=== PATIENT | female | born 1970 | race Caucasian/White ===

== ENCOUNTER 2018-03-04 11:52 | Inpatient (IN) | payer OTHER ==
[2018-03-04] VITALS (8 sets, daily range): BP systolic 114–138; BP diastolic 67–83; PULSE 71–88; TEMP 36.8–36.9; O2SAT 94–98; BMI 35.4
[~2018-03-04] VITALS: Ht 157.5 cm; Wt 87.8 kg
[~2018-03-04 11:52] MED LIST: CLC/300 PO; DICL1GEL12 TOP; DOXY100C76 PO; DULO60CA44 PO; GLIM4TAB PO; GLUCTAB6 PO; METF1000 PO; MULT-506 PO; NAPR250T3 PO; OXYC-90 PO
[2018-03-04] MEDS ORDERED: LACTATED RINGER'S 1000ML 1,000 ML IV SCH (13:08)
[2018-03-04] MEDS ORDERED: MoRPHine SULFATE 4 MG/ML 1 ML CARP\\VIAL IV PRN (13:15)
[2018-03-04] MEDS ORDERED: PIPERACILL/TAZOBAC CONSULT ACTIVE PRN (13:15)
[2018-03-04] MEDS ORDERED: MoRPHine SULFATE 2 MG/ML CARP IV PRN (13:15)
--- NOTE | 2018-03-04 13:26 | Medical Consult ---
Consultation Date of Consultation: Mar 04, 2018. Attending Physician: Reason for Consultation: Right Axilla Abscess History of Present Illness Ms. Mullins is a 47-year-old female with past medical history significant for Diabetes presented today to [facility] ED for incision check- patient is 2 days s/p Incision and Drainage of Right Axilla. Patient was started on outpatient Clindamycin- culture reveals sensitivity to Clindamycin. Patient states that the incision has been draining since Tuesday. She reports improvement in pain. Denies fever or chills at home. Past Medical/Surgical History Medical Problems: (1) Abscess Status: Acute Social History Smoking Status: Never Smoker Allergies Coded Allergies: Adhesives (Unverified Allergy, Unknown, RASH , 03/04/18) Bacitracin (Unverified Allergy, Unknown, RASH, 03/04/18) REACTION TO ALL ANTIBIOTIC CREAMS Latex1 -Allergic Contact Dermititis (Unverified Allergy, Unknown, RASH , ) REACTION TO GLOVES WITH POWDER Neomycin (Unverified Allergy, Unknown, RASH, 03/04/18) REACTION TO ALL ANTIBIOTIC CREAMS Nickel (Unverified Allergy, Unknown, RASH, 03/04/18) Polymyxin B (Unverified Allergy, Unknown, RASH, 03/04/18) REACTION TO ALL ANTIBIOTIC CREAMS Sulfate (Unverified Allergy, Unknown, RASH , 03/04/18) SULFATE IN SHAMPOO Review of Systems Constitutional: No fever, No chills Integumentary: + problem reported (area of erythema marked with first I & D- redness improving. Patient has incision- drainage appreciated on physical examination. ) Physical Exam Date Time Temp Pulse Resp B/P (MAP) Pulse Ox O2 Delivery O2 Flow Rate FiO2 03/04/18 12:55 74 20 127/67 97 Room Air 03/04/18 11:55 36.7 80 18 120/66 97 Room Air General Appearance: WD/WN, no apparent distress Skin: + pertinent finding (area of erythema marked with first I & D-redness improving. Patient has incision- drainage appreciated on physical examination. Tender with palpation. ) Assessment & Plan 47-year-old female 2 days s/p I and D of right axilla abscess. Patient seen and examined with Dr. Acosta. Recommend further Incision and Drainage with debridement in OR today. Patient states that last meal was a pretzel at 11AM today. Anesthesia notified- will need to wait 8hrs until surgery. Will admit to Med/Surg floor IV abx- Zosyn IV pain med Patient NPO. Hospitalist consult for assistance with medical management.
[2018-03-04] MEDS ORDERED: ONDANSETRON INJ 2 MG/ML 2 ML VIAL IV PRN ×3 (13:30→20:15)
[2018-03-04] MEDS ORDERED: PIPERACILL/TAZOBAC IV 3.375 GM in DEXTROSE 5% 100ML 100 ML IV SCH (13:45)
[2018-03-04 14:13] LABS: BASO % 0.3 %; BASO ABS # 0.02 K/uL (0-0.2); EOS ABS # 0.14 K/uL (0-0.5); HEMATOCRIT 37.8 % (37-47); HEMOGLOBIN 12.2 g/dL (12.0-16.0); IG# 0.05 K/uL (0.00-0.02); LYMPH % 29.9 %; LYMPH ABS # 2.05 K/uL (1.2-3.4); MEAN CELL VOLUME 90.6 fL (80-100); MEAN CORPUSCULAR HEMOGLOBIN 29.3 pg (25-34); MEAN CORPUSCULAR HGB CONC 32.3 g/dl (32-36); MEAN PLATELET VOLUME 9.1 fL (7.4-10.4); MONO % 7.3 %; NEUT % 59.8 %; PLATELET COUNT 389 K/uL (130-400); RED CELL DISTRIBUTION WIDTH CV 14.3 % (11.5-14.5); WHITE BLOOD COUNT 6.86 K/uL (4.8-10.8)
[2018-03-04 14:29] LABS: CALCIUM 9.5 mg/dl (8.5-10.1); CREATININE 0.61 mg/dl (0.60-1.20); POTASSIUM 3.9 mmol/L (3.5-5.1)
[2018-03-04] MEDS ORDERED: GLUCOSE 10 TABS/TUBE PO PRN (15:15)
[2018-03-04] MEDS ORDERED: DEXTROSE 50% 50 ML SYR IV PRN (15:15)
[2018-03-04] MEDS ORDERED: NURSING DECISION MEDICATION ORDER SCH ×2 (15:15→21:15)
[2018-03-04] MEDS ORDERED: CARBOHYDRATES FOR HYPOGLYCEMIA PO PRN (15:15)
[2018-03-04] MEDS ORDERED: GLUCOSE 40% GEL 15 GM TUBE PO PRN (15:15)
[2018-03-04] MEDS ORDERED: GLUCAGON FOR INJ 1 MG VIAL SQ PRN (15:15)
--- NOTE | 2018-03-04 16:21 | Medical Consult ---
Consultation Date of Consultation: Mar 04, 2018. Attending Physician: Raffy Acosta M.D. Reason for Consultation: Medical Management History of Present Illness This is a 47 year old female with a past medical history of DM2, diabetic nephropathy - presents with abscess on the R axilla. She states she's had this for a few weeks - she received IM Rocephin and doxycycline initially; on subsequent visits received more IM Rocephin. She was seen by [facility] ER staff on 03/02 for an I&D. Was discharged with Clindamycin. She states that the R axillary abscess did not improve, pain worsened. Presented here for possible I&D in the OR. Past Medical/Surgical History Medical Problems: (1) Abscess Status: Acute Social History Smoking Status: Never Smoker Allergies Coded Allergies: Adhesives (Unverified Allergy, Unknown, RASH , 03/04/18) Bacitracin (Unverified Allergy, Unknown, RASH, 03/04/18) REACTION TO ALL ANTIBIOTIC CREAMS Latex1 -Allergic Contact Dermititis (Unverified Allergy, Unknown, RASH , ) REACTION TO GLOVES WITH POWDER Neomycin (Unverified Allergy, Unknown, RASH, 03/04/18) REACTION TO ALL ANTIBIOTIC CREAMS Nickel (Unverified Allergy, Unknown, RASH, 03/04/18) Polymyxin B (Unverified Allergy, Unknown, RASH, 03/04/18) REACTION TO ALL ANTIBIOTIC CREAMS Sulfate (Unverified Allergy, Unknown, RASH , 03/04/18) SULFATE IN SHAMPOO Current Inpatient Medications Current Inpatient Medications Medications (Trade) Dose Ordered Sig/Jany Route Start Time Stop Time Status Last Admin Dose Admin Piperacillin Sod/ Tazobactam Sod 3.375 gm/Dextrose 115 ml @ 28.75 mls/ hr Q8 IV 03/04/18 14:00 03/18/18 13:59 UNV Miscellaneous Information (Consult) 1 ea UD PRN N/A 03/04/18 13:15 04/03/18 13:14 Lactated Ringer's 1,000 ml @ 100 mls/hr Q10H IV 03/04/18 13:08 04/03/18 13:07 UNV Morphine Sulfate (MoRPHine SULFATE INJ) 1 mg Q1H PRN IV 03/04/18 13:15 03/18/18 13:14 Morphine Sulfate (MoRPHine SULFATE INJ) 2 mg Q1H PRN IV 03/04/18 13:15 03/18/18 13:14 Morphine Sulfate (MoRPHine SULFATE INJ) 3 mg Q1H PRN IV 03/04/18 13:15 03/18/18 13:14 Ondansetron HCl (Zofran Inj) 4 mg Q4H PRN IV 03/04/18 13:30 04/03/18 13:29 Review of Systems Constitutional: No fever, No chills Respiratory: No cough, No sputum, No shortness of breath, No dyspnea on exertion, No dyspnea at rest, No hemoptysis Cardiovascular: No chest pain, No edema, No palpitations Abdomen: No pain, No nausea, No vomiting, No diarrhea, No constipation, No GI bleeding Musculoskeletal: + muscle pain (R axillary pain), No joint pain Genitourinary - Female: No dysuria, No urinary frequency, No urinary urgency, No urinary incontinence, No urinary retention, No hematuria Neurologic: No memory loss Psychiatric: No depression symptoms, No anxiety, No insomnia Endocrine: No fatigue Hematologic / Lymphatic: No abnormal bleeding/bruising Integumentary: No rash Allergic / Immunologic: No environmental allergies, No seasonal allergies Physical Exam Date Time Temp Pulse Resp B/P (MAP) Pulse Ox O2 Delivery O2 Flow Rate FiO2 03/04/18 14:57 36.9 86 18 129/73 (91) 95 Room Air 03/04/18 14:37 Room Air 03/04/18 14:10 84 20 130/56 93 03/04/18 13:45 97 Room Air 03/04/18 12:55 74 20 127/67 97 Room Air 03/04/18 11:55 36.7 80 18 120/66 97 Room Air General Appearance: no apparent distress Head: normocephalic, atraumatic Eyes: normal inspection ENT: hearing grossly normal Respiratory/Chest: lungs clear, normal breath sounds, no respiratory distress, no accessory muscle use Cardiovascular: regular rate, rhythm, no edema, no murmur, normal peripheral pulses Abdomen/GI: normal bowel sounds, non tender, soft Extremities/Musculoskelatal: + pertinent finding (R axillary erythema, incision noted, purulunt, warm to touch) Neurologic/Psych: no motor/sensory deficits, alert, normal mood/affect Skin: normal color Lymphatic: no adenopathy Laboratory Results Last 24 Hours Test 03/04/18 13:50 White Blood Count 6.86 K/uL Red Blood Count 4.17 M/uL Hemoglobin 12.2 g/dL Hematocrit 37.8 % Mean Corpuscular Volume 90.6 fL Mean Corpuscular Hemoglobin 29.3 pg Mean Corpuscular Hemoglobin Concent 32.3 g/dl Platelet Count 389 K/uL Mean Platelet Volume 9.1 fL Neutrophils (%) (Auto) 59.8 % Lymphocytes (%) (Auto) 29.9 % Monocytes (%) (Auto) 7.3 % Eosinophils (%) (Auto) 2.0 % Basophils (%) (Auto) 0.3 % Neutrophils # (Auto) 4.10 K/uL Lymphocytes # (Auto) 2.05 K/uL Monocytes # (Auto) 0.50 K/uL Eosinophils # (Auto) 0.14 K/uL Basophils # (Auto) 0.02 K/uL RDW Standard Deviation 47.0 fL RDW Coefficient of Variation 14.3 % Immature Granulocyte % (Auto) 0.7 % Immature Granulocyte # (Auto) 0.05 K/uL Sodium Level 141 mmol/L Potassium Level 3.9 mmol/L Chloride Level 105 mmol/L Carbon Dioxide Level 25 mmol/L Anion Gap 11.0 mmol/L Blood Urea Nitrogen 16 mg/dl Creatinine 0.61 mg/dl Est Creatinine Clear Calc Drug Dose 117.3 ml/min Estimated GFR () 125.1 Estimated GFR (Non- 108.0 BUN/Creatinine Ratio 25.9 Random Glucose 101 mg/dl Calcium Level 9.5 mg/dl Assessment & Plan This is a 47 year old female with a past medical history of DM2, diabetic neuropathy - presents for R axillary abscess R Axillary Abscess - patient has had an I&D on 03/02 - abscess still purulent - appreciate surgery input; will need I&D - continue IV Zosyn for now, can likely use PO Clindamycin pending cultures DM2 - hold oral agents - insulin sliding scale - check Ha1c in AM DVT ppx - SCDs FULL CODE
--- NOTE | 2018-03-04 16:31 | EMERGENCY ROOM VISIT NOTE ---
History First contact with patient: 12:00 Chief Complaint: WOUND RECHECK Stated Complaint: ABSCESS OF RIGHT AXILLA Nursing Triage Summary: was seen here and had wound opened under right arm. wound is still draining "it looks better" denies fever History of Present Illness The patient is a 47 year old white female who presents to the Emergency Room with complaints of continued pain and drainage in her right axilla. She was seen here 2 days ago and had an I&D performed of an axillary abscess. Culture was obtained and it is sensitive to clindamycin. She is already on clindamycin. Pain continues. She states it is not as uncomfortable as her previous visit. No fevers or chills. She denies any drainage other than what is on the axillary pad. Her accompanies her today. Review of Systems REVIEW OF SYSTEM: HEENT: No dizziness, visual problems, hearing loss, or tinnitus. There is no difficulty swallowing and no oral lesions are present. LYMPH: No adenopathy. PULMONARY: No cough, shortness of breath, sputum production or hemoptysis. CARDIOVASCULAR: No chest pain, palpitations, shortness of breath or peripheral edema. GASTROINTESTINAL: No diarrhea, constipation, nausea, vomiting, or abdominal pain. GENITOURINARY: No dysuria, frequency, urgency or nocturia. NEUROLOGIC: No weakness, muscle tenderness, epilepsy or history of neurological problems. MUSCULOSKELETAL: No history of joint tenderness/swelling. No history of arthritis or arthralgias. SKIN: No rashes or lesions. ENDOCRINE: No history of thyroid disorders, or abnormal hair growth. Past Medical/Surgical History Medical Problems: (1) Abscess of right axilla Diabetes, depression Family History Unremarkable. Social History Smoking Status: Never Smoker Smokeless Tobacco Use: No Drug Use: none Marital Status: Housing Status: lives with family Occupation Status: unemployed Current/Historical Medications Scheduled Clindamycin HCl (Clindamycin HCl), 1 CAP PO QID Doxycycline Monohydrate (Monodox), 100 MG PO BID Duloxetine Hcl (Cymbalta), 60 MG PO DAILY Glimepiride (Amaryl), 4 MG PO QD Bpmogamcvfv-Zusizsgotex-Rce-Vi (Flexi Joint), 1 TAB PO BID Metformin Hcl (Glucophage), 1,000 MG PO BID Multivitamin (Multivitamin), 1 TAB PO DAILY Naproxen Tab (Naprosyn), 375 MG PO BID Scheduled PRN Oxycodone Ir (Roxicodone Ir), 1-2 TAB PO Q6 PRN for Pain Physical Exam Vital Signs Date Time Temp Pulse Resp B/P (MAP) Pulse Ox O2 Delivery O2 Flow Rate FiO2 03/04/18 12:55 74 20 127/67 97 Room Air 03/04/18 11:55 36.7 80 18 120/66 97 Room Air Physical Exam General: Well-developed, well-nourished, middle-aged white female, in obvious discomfort. No acute distress. Laying on a bed. Alert and oriented. Skin: Warm and dry with good turgor. No rashes. No ecchymosis. She has a large firm abscess present in the right axilla. There are 2 prior incisions that are leaking bloody purulent material. Packing is evident. Areas tender to touch. Redness around the abscess has decreased considerably from her line of demarcation. Considerable amount of discoloration and swelling remain. The patient is not diaphoretic. No abrasions. Musculoskeletal: Gross motor function of the shoulder, elbow, and wrist are all intact. Strength is 5/5 for resisted motion. Neurologic: Gross sensation is intact across the chest wall and arm by soft touch. Medical Decision & Procedures Laboratory Results Cultures from her previous visit show a susceptible bacteria. It does respond to clindamycin. No evidence of MRSA at this time. Medications Administered Medications (Trade) Dose Ordered Sig/Jany Route Start Time Stop Time Status Last Admin Dose Admin Lactated Ringer's 1,000 ml @ 100 mls/hr Q10H IV 03/04/18 13:08 04/03/18 13:07 03/04/18 15:51 100 MLS/HR Procedure Patient's packing was removed using forceps. Copious amounts of further purulent drainage were expressed. The indurated area is still quite large and firm. No additional packing was placed at this time. ED Course Patient was educated regarding today's findings. Conservative care measures were discussed. Packing was removed as stated. Additional purulent material was expressed. She is still draining. Due to the large size of the suspected abscess, and its location, I did speak with general surgery. Dr. Acosta and his PA [place] did come to the ED to evaluate the patient. Please see their dictation for final management. Patient will be admitted for surgical I&D later today. She remained stable while in the ED. No additional packing was placed. She did eat a pretzel roll with jelly just prior to coming to the ED. She also had some Sprite. She remained n.p.o. while in the ED. Medical Decision Possibility of indurated area, subcutaneous abscess, MRSA infection, and retained foreign body were all considered. [place] Drug Monitoring Program Search Results: no issues identified Medication Reconcilliation Current Medication List: was personally reviewed by me Blood Pressure Screening Patient's blood pressure: Normal blood pressure Impression Primary Impression: Abscess of right axilla Departure Information Dispostion Still a Patient Condition FAIR Referrals Marek Ward M.D. (PCP) Forms WORK / SCHOOL INSTRUCTIONS, HOME CARE DOCUMENTATION FORM, IMPORTANT VISIT INFORMATION Patient Instructions [facility]
[2018-03-04] MEDS ORDERED: INSULIN ASPART 100 UNITS/ML 3 ML PEN SC SCH ×2 (17:15→18:00)
[2018-03-04] MEDS ORDERED: LIDOCAINE HCL 2% 2 ML VIAL (20MG/ML) ONE ×2 (18:50)
[2018-03-04] MEDS ORDERED: PROPOFOL IV EMULSION 10 MG/ML 20 ML VIAL ONE (18:50)
[2018-03-04] MEDS ORDERED: FENTANYL CITRATE INJ 50 MCG/1 ML 2 ML VIAL ONE ×4 (19:03→20:56)
[2018-03-04] MEDS ORDERED: ONDANSETRON INJ 2 MG/ML 2 ML VIAL ONE (19:04)
[2018-03-04] MEDS ORDERED: MIDAZOLAM HCL 1 MG/ML 2ML VIAL ONE (19:04)
[2018-03-04] MEDS ORDERED: BUPIVACAINE 0.5 % 5 MG/1 ML PF 10ML VIAL ONE (19:28)
[2018-03-04] MEDS ORDERED: LABETALOL HCL IV 5 MG/ML 20ML IV PRN (20:00)
[2018-03-04] MEDS ORDERED: MEPERIDINE HCL 25 MG/ML CARP IV PRN (20:00)
[2018-03-04] MEDS ORDERED: ATROPINE SULFATE 0.1 MG/ML 5ML SYR IV PRN (20:00)
[2018-03-04] MEDS ORDERED: EpHEDrine SULFATE INJ 50 MG/ML AMP IV PRN (20:00)
[2018-03-04] MEDS ORDERED: HYDROmorphone INJ 1 MG/ML SYR IV PRN (20:00)
--- NOTE | 2018-03-04 20:08 | [facility] Operative Report ---
Operative Report Operative Date Mar 04, 2018. Pre-Operative Diagnosis Right axilla abscess Post-Operative Diagnosis Right axilla abscess Procedure(s) Performed Incision, drainage, and debridement of right axilla abscess Surgeon Dr. Raffy Acosta MD Field Education Coordinator Surgeon(s) Francis Herman PA-C Estimated Blood Loss 50ml Findings very large Rt axillary abscess with deep necrosis- multiple micro abscesses spreading into soft tissue extending over 14 cm med- lat, and 6-8 cm wide packed open Specimens Culture 1. Right axilla culture Drains char posterolateral Anesthesia Type General Complication(s) none Disposition Recovery Room / PACU I attest to the content of the Intraoperative Record and any orders documented therein. Any exceptions are noted below.
[2018-03-04] MEDS ORDERED: PROMETHAZINE HCL INJ 25 MG in SODIUM CHLORIDE 0.9% 50ML 50 ML IV PRN (20:15)
[2018-03-04] MEDS ORDERED: HYDROCODONE/ACETAMIN 5/325MG TAB PO PRN (20:15)
[2018-03-04] MEDS ORDERED: ACETAMINOPHEN IV 100 ML IV ONE (20:15)
[2018-03-04] MEDS: FENTANYL CITRATE INJ 50 MCG/1 ML 2 ML VIAL IV PRN ×2 (20:24→20:31)
--- NOTE | 2018-03-04 20:43 | Anesthesiology Progress Note ---
Anesthesia Post Op Note Date & Time Mar 04, 2018 at 20:43 Vital Signs Pain Intensity: 3 Vital Signs Past 12 Hours Date Time Temp Pulse Resp B/P (MAP) Pulse Ox O2 Delivery O2 Flow Rate FiO2 03/04/18 20:13 36.1 89 18 142/77 98 Nasal Cannula 3 03/04/18 15:30 Room Air 03/04/18 15:07 36.9 88 16 133/72 (92) 95 Room Air 03/04/18 14:57 36.9 86 18 129/73 (91) 95 Room Air 03/04/18 14:37 Room Air 03/04/18 14:10 84 20 130/56 93 03/04/18 13:45 97 Room Air 03/04/18 12:55 74 20 127/67 97 Room Air 03/04/18 11:55 36.7 80 18 120/66 97 Room Air Notes Mental Status: alert / awake / arousable, participated in evaluation Pt Amnestic to Procedure: Yes Nausea / Vomiting: adequately controlled Pain: adequately controlled Airway Patency, RR, SpO2: stable & adequate BP & HR: stable & adequate Hydration State: stable & adequate Anesthetic Complications: no major complications apparent
[2018-03-04] MEDS ORDERED: PROMETHAZINE HCL INJ 12.5 MG in SODIUM CHLORIDE 0.9% 50ML 50 ML IV PRN (20:45)
[2018-03-04 20:54] LABS: INR 0.9 (0.9-1.1)
[2018-03-04] MEDS: LACTATED RINGER'S 1000ML 1,000 ML IV SCH (21:23)
[2018-03-04] MEDS ORDERED: ACETAMINOPHEN IV 100 ML IV SCH (21:30)
[2018-03-04] MEDS: PIPERACILL/TAZOBAC IV 3.375 GM in DEXTROSE 5% 100ML 100 ML IV SCH (22:29)
--- NOTE | 2018-03-04 23:14 | OPERATIVE REPORT ---
DATE OF OPERATION: 03/04/2018 NAME OF OPERATION: Incision, drainage and debridement of right axillary abscess. PREOPERATIVE DIAGNOSIS: Right axillary abscess. POSTOPERATIVE DIAGNOSIS: Right axillary abscess. STAFF SURGEON: Dr. Raffy Acosta. MUSIC DEPARTMENT CHAIR: Francis Chris PA-C. ANESTHESIA: General. DESCRIPTION OF PROCEDURE: The patient was brought in to the operating room and placed on the operating table in supine position. Her right arm was extended onto an arm board exposing the right axilla. The patient had undergone incision and drainage 2 days prior in the ER of the abscess, which was on reinspection not draining adequately and very large posteriorly. The erythema traversed approximately 14 cm from medial to lateral and posterior to the axilla. It was very wide also approximately 6-8 cm and draining purulent fluid. Incision was made from medial to lateral approximately 12 cm encountering significant deep necrosis with microabscesses extending 6-8 cm wide. These were opened as well as possible. I did debride tissue and the abscess cavity did appear to extend posteriorly 2-3 additional centimeters. This area was opened and a Rutledge drain placed. This was secured using 3-0 nylon suture. It was very friable and inflamed and somewhat bloody; however, gradually we controlled the bleeding with electrocautery and packing. It was irrigated. It was cultured and then a saline wet packing placed. My feeling was to give the wound 2-3 days of care and then she may need additional opening and debridement prior to any wound VAC placement. The patient tolerated the procedure well. Estimated blood loss was approximately 50 mL. I attest to the content of the Intraoperative Record and any orders documented therein. Any exception s are noted below.
[2018-03-05] VITALS (7 sets, daily range): BP systolic 104–133; BP diastolic 63–75; PULSE 69–76; TEMP 36.6–39.5; O2SAT 93–95
--- NOTE | 2018-03-05 06:31 | Surgery Progress Note ---
Surgery Progress Note Date of Service Mar 05, 2018. Subjective minimal pain- dressing intact- expected drainage Objective Vital Signs: Date Time Temp Pulse Resp B/P (MAP) Pulse Ox O2 Delivery O2 Flow Rate FiO2 03/05/18 03:50 37.0 69 16 112/69 (83) 95 Room Air 03/05/18 00:20 36.6 72 18 118/72 (87) 93 Room Air 03/05/18 00:15 95 Room Air 3.0 03/04/18 23:15 36.9 74 18 114/67 (83) 94 Room Air 03/04/18 22:35 98 Room Air 03/04/18 22:16 75 16 124/70 (88) 98 03/04/18 21:45 36.9 71 16 131/77 (95) 95 Nasal Cannula 2.0 03/04/18 21:10 36.8 88 16 138/83 (101) 95 Nasal Cannula 3.0 03/04/18 21:10 95 Nasal Cannula 3.0 03/04/18 21:00 36.1 83 16 133/81 99 Nasal Cannula 3 03/04/18 20:50 82 16 143/73 99 Nasal Cannula 3 03/04/18 20:40 75 10 119/82 97 Nasal Cannula 3 03/04/18 20:30 69 16 133/80 99 Nasal Cannula 3 03/04/18 20:20 92 20 145/91 97 Nasal Cannula 3 03/04/18 20:13 36.1 89 18 142/77 98 Nasal Cannula 3 03/04/18 15:30 Room Air 03/04/18 15:07 36.9 88 16 133/72 (92) 95 Room Air 03/04/18 14:57 36.9 86 18 129/73 (91) 95 Room Air 03/04/18 14:37 Room Air 03/04/18 14:10 84 20 130/56 93 03/04/18 13:45 97 Room Air 03/04/18 12:55 74 20 127/67 97 Room Air 03/04/18 11:55 36.7 80 18 120/66 97 Room Air General Appearance: no apparent distress Respiratory/Chest: no respiratory distress Incision(s): intact, drainage (expected) Laboratory Results: Results Past 24 Hours Test 03/04/18 13:50 03/04/18 17:55 7/21/18 20:17 03/04/18 21:17 Range/Units White Blood Count 6.86 4.8-10.8 K/uL Red Blood Count 4.17 4.2-5.4 M/uL Hemoglobin 12.2 12.0-16.0 g/dL Hematocrit 37.8 37-47 % Mean Corpuscular Volume 90.6 80-100 fL Mean Corpuscular Hemoglobin 29.3 25-34 pg Mean Corpuscular Hemoglobin Concent 32.3 32-36 g/dl Platelet Count 389 130-400 K/uL Mean Platelet Volume 9.1 7.4-10.4 fL Neutrophils (%) (Auto) 59.8 % Lymphocytes (%) (Auto) 29.9 % Monocytes (%) (Auto) 7.3 % Eosinophils (%) (Auto) 2.0 % Basophils (%) (Auto) 0.3 % Neutrophils # (Auto) 4.10 1.4-6.5 K/uL Lymphocytes # (Auto) 2.05 1.2-3.4 K/uL Monocytes # (Auto) 0.50 0.11-0.59 K/uL Eosinophils # (Auto) 0.14 0-0.5 K/uL Basophils # (Auto) 0.02 0-0.2 K/uL RDW Standard Deviation 47.0 36.4-46.3 fL RDW Coefficient of Variation 14.3 11.5-14.5 % Immature Granulocyte % (Auto) 0.7 % Immature Granulocyte # (Auto) 0.05 0.00-0.02 K/uL Prothrombin Time 9.6 9.0-12.0 SECONDS Prothromb Time International Ratio 0.9 0.9-1.1 Activated Partial Thromboplast Time 27.0 21.0-31.0 SECONDS Partial Thromboplastin Ratio 1.0 Sodium Level 141 136-145 mmol/L Potassium Level 3.9 3.5-5.1 mmol/L Chloride Level 105 98-107 mmol/L Carbon Dioxide Level 25 21-32 mmol/L Anion Gap 11.0 3-11 mmol/L Blood Urea Nitrogen 16 7-18 mg/dl Creatinine 0.61 0.60-1.20 mg/dl Est Creatinine Clear Calc Drug Dose 117.3 ml/min Estimated GFR () 125.1 Estimated GFR (Non- 108.0 BUN/Creatinine Ratio 25.9 10-20 Random Glucose 101 70-99 mg/dl Calcium Level 9.5 8.5-10.1 mg/dl Bedside Glucose 91 90 78 70-90 mg/dl Test 03/05/18 04:44 Range/Units Microbiology Results 03/04/18 Gram Stain, Received Pending 03/04/18 Bacterial Culture, Received Pending Assessment & Plan 03/05/18- s/p Incision, drainage, debridement Large Rt axillary abscess will need 2-3 days of wound care and possible additional drainage/debridement cont IV atbx- ask ID to help w/ atbx and will need f/u at wound clinic
[2018-03-05] MEDS: PIPERACILL/TAZOBAC IV 3.375 GM in DEXTROSE 5% 100ML 100 ML IV SCH ×3 (06:37→21:02)
[2018-03-05] MEDS: HYDROCODONE/ACETAMIN 5/325MG TAB PO PRN ×3 (06:40→21:03)
[2018-03-05 07:21] LABS: HEMATOCRIT 33.9 % (37-47); HEMOGLOBIN 10.6 g/dL (12.0-16.0); MEAN CELL VOLUME 91.6 fL (80-100); MEAN CORPUSCULAR HEMOGLOBIN 28.6 pg (25-34); MEAN CORPUSCULAR HGB CONC 31.3 g/dl (32-36); MEAN PLATELET VOLUME 8.9 fL (7.4-10.4); PLATELET COUNT 336 K/uL (130-400); RED CELL DISTRIBUTION WIDTH CV 14.5 % (11.5-14.5); RED CELL DISTRIBUTION WIDTH SD 48.9 fL (36.4-46.3); WHITE BLOOD COUNT 7.33 K/uL (4.8-10.8)
[2018-03-05 07:48] LABS: CALCIUM 8.8 mg/dl (8.5-10.1); CREATININE 0.67 mg/dl (0.60-1.20); POTASSIUM 4.1 mmol/L (3.5-5.1)
[2018-03-05] MEDS: INSULIN ASPART 100 UNITS/ML 3 ML PEN SC SCH ×4 (09:06→21:00)
[2018-03-05] MEDS: MoRPHine SULFATE 2 MG/ML CARP IV PRN ×2 (09:07→14:01)
[2018-03-05] MEDS: HEPARIN SOD 5000 UNIT/0.5 ML CARP SQ SCH ×2 (09:07→21:08)
[2018-03-05] MEDS: LACTATED RINGER'S 1000ML 1,000 ML IV SCH (09:35)
[2018-03-05] MEDS ORDERED: VANCOMYCIN CONSULT ACTIVE PRN (15:30)
[2018-03-05] MEDS ORDERED: VANCOMYCIN IV 2,250 MG in SODIUM CHLORIDE 0.9% 500ML 500 ML IV ONE (15:45)
--- NOTE | 2018-03-05 15:58 | Pharmacy Progress Note ---
Pharmacy Abx Initial Consult Date of Service Mar 05, 2018. Pharmacy Dosing Scope Date of Consult: 03/05/18 Consultation requested by: Dr. Friedman Pharmacy is consulted to initiate Vancomycin IV dosing therapy, order appropriate labs and adjust drug dose/frequency. Subjective The patient is a 47 year old female admitted on Mar 04, 2018 at 13:13. Objective Height (Feet): 5 Height (Inches): 2.00 Weight (Kilograms): 87.800 (BMI 35.4) Vital Signs (Past 12Hrs) Vital Signs Past 12 Hours Date Time Temp Pulse Resp B/P (MAP) Pulse Ox O2 Delivery O2 Flow Rate FiO2 03/05/18 15:04 37.2 71 18 104/63 (77) 94 Room Air 03/05/18 11:10 36.9 69 16 125/75 (92) 94 Room Air 03/05/18 08:00 Room Air 03/05/18 07:14 39.5 69 16 133/73 (93) 94 Room Air Lab Results (24Hrs) Laboratory Tests (24 Hours) Test 03/05/18 06:59 White Blood Count 7.33 K/uL (4.8-10.8) Item Value Date Time Creatinine 0.67 mg/dl 03/05/18 0659 Est Creatinine Clear Calc Drug Dose 106.8 ml/min 03/05/18 0659 Micro Results Date/Time Source Procedure Growth Status 03/04/18 19:44 Abscess Axilla, Right Gram Stain - Final Resulted 03/04/18 19:44 Bacterial Culture - Preliminary Staphylococcus Aureus Resulted Risk Factors for Resistance * Antimicrobial use within the last 90 days Doxycycline/Rocephin/Clindamycin for axillary abscess Assessment & Plan Assessment 47 year old female with persistent right axillary abscess. Was in ER 03/02 for I & D of abscess. She was discharged on Clindamycin. Has 2 prior incisions leaking bloody purulent material. The area is tender to the touch. Surgery performed I/D on 03/04/18. Abscess was spreading into the soft tissue. Abscess extending 14 cm med-lat & 6-8 cm wide. Plan Vancomycin for treatment of right axillary abscess Vancomycin IV * Estimated Pkinetic parameters: Vd 0.6 L/kg; Tiago ~ 0.093 hr-1; T1/2 7.5 hrs; CrCl 106.8 * Loading dose: 2250 mg (~25.6 mg/kg) * Maintenance dose: 1250 mg IV (~14.2 mg/kg) every 8 hours * Goal trough level : 15 to 20 mcg/mL * Trough level ordered for 03/07/18 Piperacillin/tazobactam - patient had already been on this medication * 3.375 g bolus administered over 30 minutes, then 3.375 g IV extended infusion every 8 hours for CrCl greater than 20 mL/min Pharmacy will continue to follow and will adjust dose/frequency as necessary. Thank you.
--- NOTE | 2018-03-05 17:38 | Progress Note ---
Subjective Date of Service: Mar 05, 2018. Subjective Pt evaluation today including: conversation w/ patient, physical exam, lab review, review of studies, review of inpatient medication list Saw/examined the patient in room 377 She's doing well post-operatively, R axilla pain is controlled Eager to go home Problem List Medical Problems: (1) Abscess Status: Acute Review of Systems Constitutional: No fever, No chills Musculoskeletal: No joint pain, No muscle pain, No swelling Medications Current Inpatient Medications Medications (Trade) Dose Ordered Sig/Jany Route Start Time Stop Time Status Last Admin Dose Admin Piperacillin Sod/ Tazobactam Sod 3.375 gm/Dextrose 115 ml @ 28.75 mls/ hr Q8H IV 03/04/18 20:00 03/18/18 19:59 03/05/18 14:01 28.75 MLS/HR Miscellaneous Information (Consult) 1 ea UD PRN N/A 03/04/18 13:15 04/03/18 13:14 Morphine Sulfate (MoRPHine SULFATE INJ) 1 mg Q1H PRN IV 03/04/18 13:15 03/18/18 13:14 Morphine Sulfate (MoRPHine SULFATE INJ) 2 mg Q1H PRN IV 03/04/18 13:15 03/18/18 13:14 03/05/18 14:01 2 MG Morphine Sulfate (MoRPHine SULFATE INJ) 3 mg Q1H PRN IV 03/04/18 13:15 03/18/18 13:14 Glucose (Glucose 40% Gel) 15-30 GRAMS 15 GRAMS... UD PRN PO 03/04/18 15:15 04/03/18 15:14 Glucose (Glucose Chew Tab) 4-8 Tablets 4 Tabl... UD PRN PO 03/04/18 15:15 04/03/18 15:14 Dextrose (Dextrose 50% 50ML Syringe) 25-50ML 25ML FOR ... UD PRN IV 03/04/18 15:15 04/03/18 15:14 Glucagon (Glucagon Inj) 1 mg UD PRN SQ 03/04/18 15:15 04/03/18 15:14 Carbohydrates (Carbohydrates For Hypoglycemia) 15-30 GRAMS 15 grams if BSG 54-69... UD PRN PO 03/04/18 15:15 04/03/18 15:14 Heparin Sodium (Porcine) (Heparin Sq 5000 Unit/0.5ml) 5,000 unit Q12H SQ 03/05/18 08:00 04/04/18 07:59 03/05/18 09:07 5,000 UNIT Lactated Ringer's 1,000 ml @ 75 mls/hr [id number] IV 03/04/18 20:15 04/03/18 20:14 03/04/18 21:23 75 MLS/HR Acetaminophen/ Hydrocodone Bitart ([place] 5/325 Tab) 1 tab Q4 PRN PO 03/04/18 20:15 03/18/18 20:14 Acetaminophen/ Hydrocodone Bitart ([place] 5/325 Tab) 2 tab Q4 PRN PO 03/04/18 20:15 03/18/18 20:14 03/05/18 12:55 2 TAB Promethazine HCl 25 mg/Sodium Chloride 51 ml @ 204 mls/hr Q6H PRN IV 03/04/18 20:15 04/03/18 20:14 Ondansetron HCl (Zofran Inj) 4 mg Q6H PRN IV 03/04/18 20:15 04/03/18 20:14 Promethazine HCl 12.5 mg/Sodium Chloride 50.5 ml @ 202 mls/hr Q6H PRN IV 03/04/18 20:45 04/03/18 20:44 Insulin Aspart (novoLOG ASPART) SLIDING SCALE If C... ACHS SC 03/05/18 08:00 04/04/18 07:59 03/05/18 12:50 2 UNITS Vancomycin HCl (Consult) 1 ea UD PRN N/A 03/05/18 15:30 04/04/18 15:29 Vancomycin HCl 2250 mg/Sodium Chloride 545 ml @ 200 mls/hr TODAY@1545 ONCE IV 03/05/18 15:45 03/05/18 18:28 03/05/18 15:54 200 MLS/HR Vancomycin HCl 1250 mg/Sodium Chloride 275 ml @ 125 mls/hr Q8H IV 03/06/18 00:00 03/16/18 00:00 Objective Vital Signs Date Time Temp Pulse Resp B/P (MAP) Pulse Ox O2 Delivery O2 Flow Rate FiO2 03/05/18 15:04 37.2 71 18 104/63 (77) 94 Room Air 7/22/18 11:10 36.9 69 16 125/75 (92) 94 Room Air 03/05/18 08:00 Room Air 03/05/18 07:14 39.5 69 16 133/73 (93) 94 Room Air 03/05/18 03:50 37.0 69 16 112/69 (83) 95 Room Air 03/05/18 00:20 36.6 72 18 118/72 (87) 93 Room Air 03/05/18 00:15 95 Room Air 3.0 03/04/18 23:15 36.9 74 18 114/67 (83) 94 Room Air 03/04/18 22:35 98 Room Air 03/04/18 22:16 75 16 124/70 (88) 98 03/04/18 21:45 36.9 71 16 131/77 (95) 95 Nasal Cannula 2.0 03/04/18 21:10 36.8 88 16 138/83 (101) 95 Nasal Cannula 3.0 03/04/18 21:10 95 Nasal Cannula 3.0 03/04/18 21:00 36.1 83 16 133/81 99 Nasal Cannula 3 03/04/18 20:50 82 16 143/73 99 Nasal Cannula 3 03/04/18 20:40 75 10 119/82 97 Nasal Cannula 3 03/04/18 20:30 69 16 133/80 99 Nasal Cannula 3 03/04/18 20:20 92 20 145/91 97 Nasal Cannula 3 03/04/18 20:13 36.1 89 18 142/77 98 Nasal Cannula 3 Physical Exam General Appearance: no apparent distress Respiratory/Chest: no respiratory distress, no accessory muscle use Extremities: + pertinent finding (R axilla dressing in place) Laboratory Results Last 24 Hours Test 03/04/18 17:55 03/04/18 20:17 03/04/18 21:17 03/05/18 06:59 Bedside Glucose 91 mg/dl 90 mg/dl 78 mg/dl White Blood Count 7.33 K/uL Red Blood Count 3.70 M/uL Hemoglobin 10.6 g/dL Hematocrit 33.9 % Mean Corpuscular Volume 91.6 fL Mean Corpuscular Hemoglobin 28.6 pg Mean Corpuscular Hemoglobin Concent 31.3 g/dl RDW Standard Deviation 48.9 fL RDW Coefficient of Variation 14.5 % Platelet Count 336 K/uL Mean Platelet Volume 8.9 fL Sodium Level 140 mmol/L Potassium Level 4.1 mmol/L Chloride Level 105 mmol/L Carbon Dioxide Level 27 mmol/L Anion Gap 8.0 mmol/L Blood Urea Nitrogen 16 mg/dl Creatinine 0.67 mg/dl Est Creatinine Clear Calc Drug Dose 106.8 ml/min Estimated GFR () 121.3 Estimated GFR (Non- 104.7 BUN/Creatinine Ratio 24.2 Random Glucose 103 mg/dl Calcium Level 8.8 mg/dl Magnesium Level 1.9 mg/dl Test 03/05/18 07:06 03/05/18 08:09 03/05/18 11:59 03/05/18 17:00 Bedside Glucose 111 mg/dl 108 mg/dl 101 mg/dl 99 mg/dl Assessment and Plan This is a 47 year old female with a past medical history of DM2, diabetic neuropathy - presents for R axillary abscess R Axillary Abscess 03/05 - initial bacterial culture growing S. aureus - will add Vancomycin, continue Zosyn, de-escalate once sensitivities return 03/04 - patient has had an I&D on 03/02 - abscess still purulent - appreciate surgery input; will need I&D - continue IV Zosyn for now, can likely use PO Clindamycin pending cultures DM2 - hold oral agents - insulin sliding scale - check Ha1c in AM DVT ppx - SCDs FULL CODE
[2018-03-05] MEDS ORDERED: NURSING VERBAL MED ORDER ONE (19:00)
[2018-03-05] MEDS: VANCOMYCIN IV 1,250 MG in SODIUM CHLORIDE 0.9% 250ML 250 ML IV SCH (23:39)
[2018-03-06] MEDS: HYDROCODONE/ACETAMIN 5/325MG TAB PO PRN ×4 (02:09→19:39)
[2018-03-06] MEDS: PIPERACILL/TAZOBAC IV 3.375 GM in DEXTROSE 5% 100ML 100 ML IV SCH (05:57)
[2018-03-06 06:39] LABS: HEMOGLOBIN A1C 7.3 % (4.5-5.6)
--- NOTE | 2018-03-06 07:08 | Surgery Progress Note ---
Surgery Progress Note Date of Service Mar 06, 2018. Subjective + feeling well, + flatus, + pain controlled, + diet (Tolerating DM II diet), No bowel movement, No nausea, No vomiting Objective Vital Signs: Date Time Temp Pulse Resp B/P (MAP) Pulse Ox O2 Delivery O2 Flow Rate FiO2 03/05/18 23:45 Room Air 03/05/18 22:55 37.1 76 16 120/69 (86) 95 03/05/18 15:45 Room Air 03/05/18 15:04 37.2 71 18 104/63 (77) 94 Room Air 03/05/18 11:10 36.9 69 16 125/75 (92) 94 Room Air 03/05/18 08:00 Room Air 03/05/18 07:14 39.5 69 16 133/73 (93) 94 Room Air General Appearance: no apparent distress, + obese Head: normocephalic, atraumatic Respiratory/Chest: no respiratory distress Incision(s): findings (Right Axilla wound s/p I&D - packing in place, TTP over site (expected), no surrounding erythema. no increased swelling. ) Laboratory Results: Results Past 24 Hours Test 03/05/18 07:06 03/05/18 08:09 03/05/18 11:59 03/05/18 17:00 Range/Units Bedside Glucose 111 108 101 99 70-90 mg/dl Test 03/05/18 20:38 03/06/18 06:38 Range/Units Bedside Glucose 110 70-90 mg/dl Assessment & Plan s/p Incision, drainage, debridement Large Rt axillary abscess Wound site looks good. Denies fever, chills. afebrile. Continue BID packing changes. - Wound Care consulted. May need additional drainage/debridement. Likely outpatient wound care as well. Continue IV Abx - ID consulted. Please contact with questions or concerns.
--- NOTE | 2018-03-06 07:15 | Surgery Progress Note ---
Surgery Progress Note Date of Service Mar 06, 2018. Subjective now on Vanco tolerating dressing changes Objective Vital Signs: Date Time Temp Pulse Resp B/P (MAP) Pulse Ox O2 Delivery O2 Flow Rate FiO2 03/05/18 23:45 Room Air 03/05/18 22:55 37.1 76 16 120/69 (86) 95 03/05/18 15:45 Room Air 03/05/18 15:04 37.2 71 18 104/63 (77) 94 Room Air 03/05/18 11:10 36.9 69 16 125/75 (92) 94 Room Air 03/05/18 08:00 Room Air 03/05/18 07:14 39.5 69 16 133/73 (93) 94 Room Air General Appearance: no apparent distress Respiratory/Chest: no respiratory distress Incision(s): drainage (expected) Laboratory Results: Results Past 24 Hours Test 03/05/18 08:09 03/05/18 11:59 03/05/18 17:00 03/05/18 20:38 Range/Units Bedside Glucose 108 101 99 110 70-90 mg/dl Test 03/06/18 06:38 Range/Units Assessment & Plan 03/06/18- overall stable- wound care in progress- considering wound vac may need additional debridement- cellulitis improving cont IV atbx 03/05/18- s/p Incision, drainage, debridement Large Rt axillary abscess will need 2-3 days of wound care and possible additional drainage/debridement cont IV atbx- ask ID to help w/ atbx and will need f/u at wound clinic 03/05/18- s/p Incision, drainage, debridement Large Rt axillary abscess will need 2-3 days of wound care and possible additional drainage/debridement cont IV atbx- ask ID to help w/ atbx and will need f/u at wound clinic
[2018-03-06 07:28] LABS: CREATININE 0.73 mg/dl (0.60-1.20)
[2018-03-06 07:32] VITALS: BP 121/76; PULSE 68; TEMP 37.2; O2SAT 96
[2018-03-06] MEDS: VANCOMYCIN IV 1,250 MG in SODIUM CHLORIDE 0.9% 250ML 250 ML IV SCH (08:45)
[2018-03-06] MEDS: INSULIN ASPART 100 UNITS/ML 3 ML PEN SC SCH ×4 (08:57→21:00)
[2018-03-06] MEDS: HEPARIN SOD 5000 UNIT/0.5 ML CARP SQ SCH ×2 (08:58→19:35)
[2018-03-06] MEDS: MoRPHine SULFATE 2 MG/ML CARP IV PRN ×2 (10:31→14:07)
--- NOTE | 2018-03-06 10:44 | Medical Consult ---
Consultation Date of Consultation: Mar 06, 2018. Attending Physician: Raffy Acosta M.D. Reason for Consultation: Abscess, antibiotic recommendations History of Present Illness 47-year-old female with history of type 2 diabetes mellitus with diabetic nephropathy, who was in usual state of health until approximately 3 weeks ago when she developed painful swelling and redness in her right axilla. She thought area started with a small pimple. Symptoms worsened, she saw her primary care doctor and was treated with IM ceftriaxone and oral doxycycline but symptoms worsened. On March 02, she was seen in the emergency department for worsening infection with culture positive for methicillin sensitive Staph aureus. She was given clindamycin but symptoms worsen leading to readmission for IV antibiotics. She was found to have very large abscess and has undergone surgical drainage and debridement. Cultures again have grown methicillin sensitive Staph aureus. Patient currently on IV vancomycin. Awaiting wound care consultation for wound VAC. Patient feeling significantly better, minimal pain in her right axilla now. She has not had any fevers, did but did complain of chills prior to admission. Past Medical/Surgical History Past medical history: Type 2 diabetes mellitus, diabetic nephropathy Past surgical history: Incision drainage right axillary abscess Family History Noncontributory Social History Smoking Status: Never Smoker Smokeless Tobacco Use: No Drug Use: none Marital Status: Housing Status: lives with family Occupation Status: unemployed Allergies Coded Allergies: Adhesives (Unverified Allergy, Unknown, RASH , 03/04/18) Bacitracin (Unverified Allergy, Unknown, RASH, 03/04/18) REACTION TO ALL ANTIBIOTIC CREAMS Latex1 -Allergic Contact Dermititis (Unverified Allergy, Unknown, RASH , ) REACTION TO GLOVES WITH POWDER Neomycin (Unverified Allergy, Unknown, RASH, 03/04/18) REACTION TO ALL ANTIBIOTIC CREAMS Nickel (Unverified Allergy, Unknown, RASH, 03/04/18) Polymyxin B (Unverified Allergy, Unknown, RASH, 03/04/18) REACTION TO ALL ANTIBIOTIC CREAMS Sulfate (Unverified Allergy, Unknown, RASH , 03/04/18) SULFATE IN [place]AMPOO Current Inpatient Medications Current Inpatient Medications Medications (Trade) Dose Ordered Sig/Jany Route Start Time Stop Time Status Last Admin Dose Admin Piperacillin Sod/ Tazobactam Sod 3.375 gm/Dextrose 115 ml @ 28.75 mls/ hr Q8H IV 03/04/18 20:00 03/18/18 19:59 03/06/18 05:57 28.75 MLS/HR Miscellaneous Information (Consult) 1 ea UD PRN N/A 03/04/18 13:15 04/03/18 13:14 Morphine Sulfate (MoRPHine SULFATE INJ) 1 mg Q1H PRN IV 03/04/18 13:15 03/18/18 13:14 Morphine Sulfate (MoRPHine SULFATE INJ) 2 mg Q1H PRN IV 03/04/18 13:15 03/18/18 13:14 03/06/18 10:31 2 MG Morphine Sulfate (MoRPHine SULFATE INJ) 3 mg Q1H PRN IV 03/04/18 13:15 03/18/18 13:14 Glucose (Glucose 40% Gel) 15-30 GRAMS 15 GRAMS... UD PRN PO 03/04/18 15:15 04/03/18 15:14 Glucose (Glucose Chew Tab) 4-8 Tablets 4 Tabl... UD PRN PO 03/04/18 15:15 04/03/18 15:14 Dextrose (Dextrose 50% 50ML Syringe) 25-50ML 25ML FOR ... UD PRN IV 03/04/18 15:15 04/03/18 15:14 Glucagon (Glucagon Inj) 1 mg UD PRN SQ 03/04/18 15:15 04/03/18 15:14 Carbohydrates (Carbohydrates For Hypoglycemia) 15-30 GRAMS 15 grams if BSG 54-69... UD PRN PO 03/04/18 15:15 04/03/18 15:14 Heparin Sodium (Porcine) (Heparin Sq 5000 Unit/0.5ml) 5,000 unit Q12H SQ 03/05/18 08:00 04/04/18 07:59 03/06/18 08:58 5,000 UNIT Acetaminophen/ Hydrocodone Bitart ([place] 5/325 Tab) 1 tab Q4 PRN PO 03/04/18 20:15 03/18/18 20:14 Acetaminophen/ Hydrocodone Bitart ([place] 5/325 Tab) 2 tab Q4 PRN PO 03/04/18 20:15 03/18/18 20:14 03/06/18 09:41 2 TAB Promethazine HCl 25 mg/Sodium Chloride 51 ml @ 204 mls/hr Q6H PRN IV 03/04/18 20:15 04/03/18 20:14 Ondansetron HCl (Zofran Inj) 4 mg Q6H PRN IV 03/04/18 20:15 04/03/18 20:14 Promethazine HCl 12.5 mg/Sodium Chloride 50.5 ml @ 202 mls/hr Q6H PRN IV 03/04/18 20:45 04/03/18 20:44 Insulin Aspart (novoLOG ASPART) SLIDING SCALE If C... ACHS SC 03/05/18 08:00 04/04/18 07:59 03/06/18 08:57 2 UNITS Vancomycin HCl (Consult) 1 ea UD PRN N/A 03/05/18 15:30 04/04/18 15:29 Vancomycin HCl 1250 mg/Sodium Chloride 275 ml @ 125 mls/hr Q8H IV 03/06/18 00:00 03/16/18 00:00 03/06/18 08:45 125 MLS/HR Review of Systems All systems were reviewed and are negative except as per HPI Physical Exam Date Time Temp Pulse Resp B/P (MAP) Pulse Ox O2 Delivery O2 Flow Rate FiO2 03/06/18 07:32 37.2 68 16 121/76 (91) 96 Room Air 03/06/18 07:30 Room Air 03/05/18 23:45 Room Air 03/05/18 22:55 37.1 76 16 120/69 (86) 95 03/05/18 15:45 Room Air 03/05/18 15:04 37.2 71 18 104/63 (77) 94 Room Air 03/05/18 11:10 36.9 69 16 125/75 (92) 94 Room Air General Appearance: WD/WN, no apparent distress, + obese Head: normocephalic, atraumatic Eyes: normal inspection, EOMI, sclerae normal ENT: normal ENT inspection, hearing grossly normal, pharynx normal Neck: supple, no adenopathy, thyroid normal, trachea midline Respiratory/Chest: chest non-tender, lungs clear, normal breath sounds, no respiratory distress Cardiovascular: regular rate, rhythm, no gallop, no murmur Abdomen/GI: normal bowel sounds, non tender, soft, no organomegaly Back: normal inspection, no CVA tenderness Extremities/Musculoskelatal: no calf tenderness, normal capillary refill, non- tender Neurologic/Psych: no motor/sensory deficits, alert, normal mood/affect, oriented x 3 Skin: normal color, no rash, + pertinent finding (Large open wound right axilla with some necrotic debris but otherwise appears relatively clean. Surrounding erythema appears improving) Laboratory Results RUN DATE: 03/06/18 [facility] LAB PAGE 1 RUN TIME: 724 Specimen Inquiry PATIENT: CHELSEA RICHTER LOC: [facility] U # : [id number] AGE/SX: 47/F ROOM: [facility] REG : 03/04/[address]: Raffy Acosta M.D. : 1970 BED: 2 DIS : STATUS: ADM IN TLOC: SPEC #: [id number] TANO: 03/04/18 STATUS: RES REQ #: [id number] RECD: 03/04/[address]: Raffy Acosta M.D. SOURCE: ABSCESS ENTR: 03/04/[address]: Sita Brewer M.D. [facility]: Loan LU Philip A., M.D. Tichansky, Christine L., D.Daniel ORDERED: AER/SARAH CULTSMR Procedure Result Verified Site GRAM STAIN Final 03/05/18 RESULT MODERATE WBCs SEEN FEW GRAM POSITIVE COCCI OR AER/SARAH CULT Preliminary 03/06/18 Organism 1 STAPHYLOCOCCUS AUREUS QUANITY MODERATE SENS SENSITIVITY TO FOLLOW 1. STAPHYLOCOCCUS AUREUS Target Route Dose RX AB Cost M.I.C. IQ ------ ----- ------ -- ------ -------- - ------ TRIMET/SULFA S <=0.5/ 9.5 * OXACILLIN S <=0.25 VANCOMYCIN S 2 ERYTHROMYCIN S <=0.5 TETRACYCLINE S <=4 CLINDAMYCIN S <=0.5 DAPTOMYCIN S 1 S = SENSITIVE I = INTERMEDIATE R = RESISTANT END OF REPORT Last 24 Hours Test 03/05/18 11:59 03/05/18 17:00 03/05/18 20:38 03/06/18 06:38 Bedside Glucose 101 mg/dl 99 mg/dl 110 mg/dl Creatinine 0.73 mg/dl Est Creatinine Clear Calc Drug Dose 98.0 ml/min Estimated GFR () 113.7 Estimated GFR (Non- 98.1 Patient Name: CHELSEA RICHTER Unit Number: [id number] Dictated: 03/02/[id number] Transcribed: 03/02/181307 JA Printed Date/Time: [~ rep prt dt]/[~ rep prt tm] [~ rep ct labl] - [~ rep ct ivnm] [facility] [place] [address] Dictated: 03/02/181254 Transcribed: 03/02/181307 Printed Date/Time: [~ rep prt dt]/[~ rep prt tm] [~ rep ct labl] - [~ rep ct ivnm] DIAGNOSTIC IMAGING [~ rep ct add3]] RIGHT AXILLARY ULTRASOUND CLINICAL HISTORY: Right axillary cellulitis with large suspected abscess. COMPARISON STUDY: No previous studies for comparison. TECHNIQUE: Sonography of the right axilla was performed. FINDINGS: Note is made of a subcutaneous complex fluid collection of the right axilla which measures approximately 5 x 3.7 x 2.4 cm. This suggests a large abscess. Subcutaneous edema was also noted. IMPRESSION: 5 x 3.7 x 2.4 cm complex subcutaneous fluid collection of the right axilla suggestive of an abscess. Electronically signed by: Jacob Martini M.D. 03/02/2018 1:13 PM Dictated Date/Time: 03/02/2018 12:55 PM The status of this report is Signed. Draft = Not yet reviewed or approved by Radiologist. Signed = Reviewed and approved by Radiologist. <AttendingPhy></AttendingPhy> <FamilyPhy>Marek Ward M.D.</FamilyPhy> < PrimaryPhy>Marek Ward M.D.</PrimaryPhy> <UnitNumber>[id number]</ UnitNumber> <VisitNumber>[id number]</VisitNumber> <PatientName>MICHAELKITCHELSEA</PatientName> <DateOfBirth>1970</DateOfBirth> <Location>[facility]< /Location> <ServiceDate>03/02/18</ServiceDate> <MNE>ESINDI</MNE> <OrderingPhy> Aki Pastrana PA-C</OrderingPhy> <OrderingPhyMNE>f rep ord dr dunn</ OrderingPhyMNE> <DictatingPhyMNE>f rep dict dr dunn</DictatingPhyMNE> <CCListMNE> f rep ct mne</CCListMNE> <AdmittingPhyMNE>f pt admit dr dunn</AdmittingPhyMNE> < AttendingPhyMNE>f pt attend dr dunn</AttendingPhyMNE> <ConsultingPhyMNE>f pt consult dr dunn</ConsultingPhyMNE> <FamilyPhyMNE>f pt fam dr dunn</FamilyPhyMNE> <OtherPhyMNE>f pt other dr dunn</OtherPhyMNE> < PrimaryPhyMNE>f pt prim care dr dunn</PrimaryPhyMNE> <ReferringPhyMNE>f pt referring dr dunn</ReferringPhyMNE> Assessment & Plan 47-year-old diabetic female with right axillary abscess with methicillin sensitive Staph aureus. Patient will be changed to IV cefazolin for now, hopefully can transition to oral antibiotics with cephalexin in the near future. Await wound care evaluation for wound VAC. Will follow.
[2018-03-06 12:09] VITALS: Ht 157.5 cm; Wt 87.8 kg
[2018-03-06] MEDS: CEFAZOLIN IV 2,000 MG in SYRINGE 0 ML IV SCH ×2 (12:12→19:33)
--- NOTE | 2018-03-06 13:42 | WOUND CONSULTATION ---
REASON FOR CONSULTATION: Abscess, right axilla, status post surgical I and D and placement of drain. HISTORY OF PRESENT ILLNESS: This 47-year-old woman with a history of diabetes, was admitted to the hospital on 03/04 for treatment of an abscess to the right axilla. The patient states she noted a lump in her right axilla around February 21. She was evaluated in the Emergency Department on 03/02, and had an ultrasound done at that time which was consistent with and abscess and underwent an I and D. She was empirically placed on clindamycin. She returned for recheck and was noted to have worsening pain and increased swelling. She was admitted on 03/04/18. Dr. Acosta took her to the operating room for surgical I and D. Wound culture is growing a Staph aureus and she is currently under the care of Dr. Carroll for treatment of her infection. The patient at this time is complaining of minimal pain. She denies any associated fever. She denies any previous problems with abscesses or poor wound healing. She is a diabetic and states her blood sugars have not been under good control. She is unsure of her last A1c value. She denies any other significant medical history. REVIEW OF SYSTEMS: See HPI for pertinent positives and negatives. The patient denies other acute complaints. Ten systems were reviewed and otherwise negative. PAST MEDICAL HISTORY: Diabetes and diabetic neuropathy. HOME MEDICATIONS: Clindamycin 1 cap q.i.d. x7 days 300 mg, doxycycline 100 mg b.i.d. x7 days, Cymbalta 60 mg daily, glimepiride 4 mg daily, glucosamine chondroitin 1 tab b.i.d., metformin 1000 mg b.i.d., multivitamin 1 tablet daily, naproxen 250 mg b.i.d., oxycodone IR 5 mg 1-2 tablets q. 6 hours p.r.n. ALLERGIES: TO ADHESIVES, BACITRACIN, LATEX, NEOMYCIN, NICKEL, SULFATE. PREVIOUS SURGICAL HISTORY: I and D of abscess. SOCIAL HISTORY: The patient is , unemployed, lives with , nonsmoker. PHYSICAL EXAMINATION: GENERAL: Reveals a pleasant 47-year-old woman who is alert and oriented, in no acute distress today. VITAL SIGNS: Today, temperature 37.2, pulse 68, blood pressure 121/76, respiratory rate 16 and unlabored. SKIN: Warm and dry. HEENT: Normocephalic, atraumatic. PERRLA. EOMI. NECK: Supple. LUNGS: Clear. HEART: Regular rate and rhythm. ABDOMEN: Obese, soft, nontender. BACK: Nontender. EXTREMITIES: Without deformity or calf tenderness. Distal pulses are intact. On examination of her right axilla, the patient has a surgical wound measuring 3.1 x 15.7 x 2.9 cm. Wound base is pink with good epithelialization. No necrosis. No odor or drainage. Over the lateral edge of the wound, a sutured Seferino drain is present. This area tunnels to 2 cm. The periwound area is mildly inflamed. No overt cellulitis. NEURO: Nonfocal LABORATORY STUDIES: Wound culture + MSSA, wbc 7.33, HGB 10.6, Hct-33.9, Na-141, Cl-105, K-3.9,CO2 25, BUN-16, Creatinine-0.61 ASSESSMENT: 1. Nonhealing postoperative wound, status post I and D of abscess. 2. Diabetes mellitus type 2. PLAN: The wound did not require debridement. At this time, I am recommending that the patient start VAC therapy, silver foam, 125 mm of negative pressure with VAC changes Tuesday, Tuesday and Tuesday. Continue antibiotic therapy per Dr. Carroll. The patient will be followed by the Wound Care nurse while inpatient and can be reevaluated as an outpatient at the Wound Center. If you have any questions regarding the patient's wound care or need any further assistance, please feel free to contact me. Thank you for this consultation. Time spent on consultation 45min. MARTY
[2018-03-06 15:11] VITALS: BP 124/72; PULSE 71; TEMP 37.4; O2SAT 94
--- NOTE | 2018-03-06 15:23 | Progress Note ---
Subjective Date of Service: Mar 06, 2018. Subjective Pt evaluation today including: conversation w/ patient, physical exam, lab review, review of studies, review of inpatient medication list Saw/examined the patient in room 377 She's doing well, upcoming plan for wound vac No other issues to note today Problem List Medical Problems: (1) Abscess Status: Acute Review of Systems Constitutional: No fever, No chills Respiratory: No shortness of breath Cardiac: No chest pain Abdomen: No pain, No nausea, No vomiting, No diarrhea, No constipation, No GI bleeding Medications Current Inpatient Medications Medications (Trade) Dose Ordered Sig/Jany Route Start Time Stop Time Status Last Admin Dose Admin Morphine Sulfate (MoRPHine SULFATE INJ) 1 mg Q1H PRN IV 03/04/18 13:15 03/18/18 13:14 Morphine Sulfate (MoRPHine SULFATE INJ) 2 mg Q1H PRN IV 03/04/18 13:15 03/18/18 13:14 03/06/18 14:07 2 MG Morphine Sulfate (MoRPHine SULFATE INJ) 3 mg Q1H PRN IV 03/04/18 13:15 03/18/18 13:14 Glucose (Glucose 40% Gel) 15-30 GRAMS 15 GRAMS... UD PRN PO 03/04/18 15:15 04/03/18 15:14 Glucose (Glucose Chew Tab) 4-8 Tablets 4 Tabl... UD PRN PO 03/04/18 15:15 04/03/18 15:14 Dextrose (Dextrose 50% 50ML Syringe) 25-50ML 25ML FOR ... UD PRN IV 03/04/18 15:15 04/03/18 15:14 Glucagon (Glucagon Inj) 1 mg UD PRN SQ 03/04/18 15:15 04/03/18 15:14 Carbohydrates (Carbohydrates For Hypoglycemia) 15-30 GRAMS 15 grams if BSG 54-69... UD PRN PO 03/04/18 15:15 04/03/18 15:14 Heparin Sodium (Porcine) (Heparin Sq 5000 Unit/0.5ml) 5,000 unit Q12H SQ 03/05/18 08:00 04/04/18 07:59 03/06/18 08:58 5,000 UNIT Acetaminophen/ Hydrocodone Bitart ([place] 5/325 Tab) 1 tab Q4 PRN PO 03/04/18 20:15 03/18/18 20:14 Acetaminophen/ Hydrocodone Bitart ([place] 5/325 Tab) 2 tab Q4 PRN PO 03/04/18 20:15 03/18/18 20:14 03/06/18 09:41 2 TAB Promethazine HCl 25 mg/Sodium Chloride 51 ml @ 204 mls/hr Q6H PRN IV 03/04/18 20:15 04/03/18 20:14 Ondansetron HCl (Zofran Inj) 4 mg Q6H PRN IV 03/04/18 20:15 04/03/18 20:14 Promethazine HCl 12.5 mg/Sodium Chloride 50.5 ml @ 202 mls/hr Q6H PRN IV 03/04/18 20:45 04/03/18 20:44 Insulin Aspart (novoLOG ASPART) SLIDING SCALE If C... ACHS SC 03/05/18 08:00 04/04/18 07:59 03/06/18 13:00 1 UNITS Cefazolin Sodium 2000 mg/Syringe 15 ml @ 3.75 mls/ min Q8H IV 03/06/18 11:00 03/16/18 10:59 03/06/18 12:12 3.75 MLS/MIN Objective Vital Signs Date Time Temp Pulse Resp B/P (MAP) Pulse Ox O2 Delivery O2 Flow Rate FiO2 03/06/18 07:32 37.2 68 16 121/76 (91) 96 Room Air 03/06/18 07:30 Room Air 03/05/18 23:45 Room Air 03/05/18 22:55 37.1 76 16 120/69 (86) 95 03/05/18 15:45 Room Air Physical Exam General Appearance: no apparent distress Respiratory/Chest: lungs clear, normal breath sounds, no respiratory distress, no accessory muscle use Cardiovascular: regular rate, rhythm, no edema, no murmur Extremities: normal inspection, no pedal edema Neurologic/Psychiatric: no motor/sensory deficits, alert, normal mood/affect Laboratory Results Last 24 Hours Test 03/05/18 17:00 03/05/18 20:38 03/06/18 06:38 03/06/18 08:07 Bedside Glucose 99 mg/dl 110 mg/dl 113 mg/dl Creatinine 0.73 mg/dl Est Creatinine Clear Calc Drug Dose 98.0 ml/min Estimated GFR () 113.7 Estimated GFR (Non- 98.1 Test 03/06/18 12:02 Bedside Glucose 115 mg/dl Assessment and Plan This is a 47 year old female with a past medical history of DM2, diabetic neuropathy - presents for R axillary abscess R Axillary Abscess 03/06 - MSSA on cultures - abx. changed to Cefazolin as per ID - will likely change from IV to PO - s/p I&D - plan for wound vac today 03/05 - initial bacterial culture growing S. aureus - will add Vancomycin, continue Zosyn, de-escalate once sensitivities return 03/04 - patient has had an I&D on 03/02 - abscess still purulent - appreciate surgery input; will need I&D - continue IV Zosyn for now, can likely use PO Clindamycin pending cultures DM2 - hold oral agents - insulin sliding scale - Ha1c = 7.3% DVT ppx - SCDs FULL CODE
[2018-03-06 23:15] VITALS: BP 113/68; PULSE 76; TEMP 36.9; O2SAT 95
[2018-03-07] MEDS: CEFAZOLIN IV 2,000 MG in SYRINGE 0 ML IV SCH ×3 (02:31→20:29)
[2018-03-07 06:08] LABS: HEMATOCRIT 34.5 % (37-47); MEAN CELL VOLUME 91.5 fL (80-100); MEAN CORPUSCULAR HEMOGLOBIN 29.2 pg (25-34); MEAN CORPUSCULAR HGB CONC 31.9 g/dl (32-36); PLATELET COUNT 345 K/uL (130-400); RED CELL DISTRIBUTION WIDTH CV 14.5 % (11.5-14.5); RED CELL DISTRIBUTION WIDTH SD 47.9 fL (36.4-46.3); WHITE BLOOD COUNT 8.13 K/uL (4.8-10.8)
[2018-03-07 06:45] LABS: CREATININE 0.77 mg/dl (0.60-1.20)
[2018-03-07] MEDS ORDERED: VANCOMYCIN TROUGH ONE (07:30)
--- NOTE | 2018-03-07 08:01 | Surgery Progress Note ---
Surgery Progress Note Date of Service Mar 07, 2018. Subjective doing well with wound vac Objective Vital Signs: Date Time Temp Pulse Resp B/P (MAP) Pulse Ox O2 Delivery O2 Flow Rate FiO2 03/07/18 01:39 Room Air 03/06/18 23:15 36.9 76 16 113/68 (83) 95 Room Air 03/06/18 15:30 Room Air 03/06/18 15:11 37.4 71 17 124/72 (89) 94 Room Air General Appearance: no apparent distress Respiratory/Chest: no respiratory distress Incision(s): findings (wound with less cellulitis) Laboratory Results: Results Past 24 Hours Test 03/06/18 08:07 03/06/18 12:02 03/06/18 17:15 03/06/18 20:55 Range/Units Bedside Glucose 113 115 116 133 70-90 mg/dl Test 03/07/18 05:44 Range/Units White Blood Count 8.13 4.8-10.8 K/uL Red Blood Count 3.77 4.2-5.4 M/uL Hemoglobin 11.0 12.0-16.0 g/dL Hematocrit 34.5 37-47 % Mean Corpuscular Volume 91.5 80-100 fL Mean Corpuscular Hemoglobin 29.2 25-34 pg Mean Corpuscular Hemoglobin Concent 31.9 32-36 g/dl RDW Standard Deviation 47.9 36.4-46.3 fL RDW Coefficient of Variation 14.5 11.5-14.5 % Platelet Count 345 130-400 K/uL Mean Platelet Volume 9.0 7.4-10.4 fL Creatinine 0.77 0.60-1.20 mg/dl Est Creatinine Clear Calc Drug Dose 93.0 ml/min Estimated GFR () 106.6 Estimated GFR (Non- 91.9 Assessment & Plan 03/07/18- cont IV atbx today- wound vac change here tomorrow if possible then d/c and f/u wound clinic later in week 03/06/18- overall stable- wound care in progress- considering wound vac may need additional debridement- cellulitis improving cont IV atbx 03/05/18- s/p Incision, drainage, debridement Large Rt axillary abscess will need 2-3 days of wound care and possible additional drainage/debridement cont IV atbx- ask ID to help w/ atbx and will need f/u at wound clinic 03/06/18- overall stable- wound care in progress- considering wound vac may need additional debridement- cellulitis improving cont IV atbx 03/05/18- s/p Incision, drainage, debridement Large Rt axillary abscess will need 2-3 days of wound care and possible additional drainage/debridement cont IV atbx- ask ID to help w/ atbx and will need f/u at wound clinic
[2018-03-07 08:03] VITALS: BP 127/77; PULSE 78; TEMP 37; O2SAT 94
[2018-03-07 08:34] VITALS: O2SAT 94
[2018-03-07] MEDS: HEPARIN SOD 5000 UNIT/0.5 ML CARP SQ SCH ×2 (08:57→20:32)
[2018-03-07] MEDS: INSULIN ASPART 100 UNITS/ML 3 ML PEN SC SCH ×4 (08:57→20:38)
[2018-03-07] MEDS: HYDROCODONE/ACETAMIN 5/325MG TAB PO PRN (15:17)
--- NOTE | 2018-03-07 15:50 | Hospitalist Progress Note ---
Hospitalist Progress Note Date of Service Mar 07, 2018. (Juliana Samuels PA-C) Subjective Pt evaluation today including: conversation w/ patient, physical exam, chart review, lab review Pt reports doing well today and pain well controlled and just took first dose of pain med today. Had wound vac placed. reports nausea yesterday, no further nausea today, no vomiting. Had BM this morning. Denies CARL, dizziness, CP, SOB, cough, abdominal pain. (Juliana Samuels PA-C) Objective Vital Signs Date Time Temp Pulse Resp B/P (MAP) Pulse Ox O2 Delivery O2 Flow Rate FiO2 03/07/18 08:34 94 Room Air 03/07/18 08:03 37.0 78 16 127/77 (94) 94 Room Air 03/07/18 07:50 Room Air 03/07/18 01:39 Room Air 03/06/18 23:15 36.9 76 16 113/68 (83) 95 Room Air (Juliana Samuels PA-C) Physical Exam General Appearance: WD/WN, no apparent distress Eyes: normal inspection ENT: hearing grossly normal, pharynx normal, + pertinent finding (mucous membranes moist) Neck: supple Respiratory/Chest: lungs clear, normal breath sounds, no respiratory distress Cardiovascular: regular rate, rhythm Abdomen: normal bowel sounds, non tender, soft Extremities: normal inspection, no pedal edema Neurologic/Psychiatric: alert, normal mood/affect, oriented x 3 Skin: warm/dry, + pertinent finding (Right axilla with wound vac in place) (Juliana Samuels PA-C) Laboratory Results Last 24 Hours Test 03/06/18 17:15 03/06/18 20:55 03/07/18 05:44 03/07/18 12:01 Bedside Glucose 116 mg/dl 133 mg/dl 147 mg/dl White Blood Count 8.13 K/uL Red Blood Count 3.77 M/uL Hemoglobin 11.0 g/dL Hematocrit 34.5 % Mean Corpuscular Volume 91.5 fL Mean Corpuscular Hemoglobin 29.2 pg Mean Corpuscular Hemoglobin Concent 31.9 g/dl RDW Standard Deviation 47.9 fL RDW Coefficient of Variation 14.5 % Platelet Count 345 K/uL Mean Platelet Volume 9.0 fL Creatinine 0.77 mg/dl Est Creatinine Clear Calc Drug Dose 93.0 ml/min Estimated GFR () 106.6 Estimated GFR (Non- 91.9 (Juliana Samuels PA-C) Assessment and Plan R AXILLARY ABSCESS S/P I&D MSSA on culture -Cefazolin IV per ID with plan to transition to oral cephalexin soon -Wound vac placed, with planned wound clinic eval upon d/c DM II HA1c: 7.3 -holding oral agents -Novolog sliding scale per protocol DVT Prophylaxis -Heparin SQ Disposition per surgical team - planned d/c home Follows with Dr Ward for routine care Pt was seen with Dr Whittaker. See addendum (Juliana Samuels PA-C) ATTENDING ADDENDUM care coordinated with ANJUM Lira Delayed entry date of service as above please refer to her notes for full details, I agree with her notes patient seen and examined, records reviewed by myself as well on exam, patient seen resting in bed comfortable Minimal pain in the right axillary region wound site no other symptoms VS noted and reviewed oriented 2, not in distress, speaks in sentences with no effort nor accessory muscle use normal rate, regular rhythm, no murmurs clear breath sounds bilaterally non distended, soft, nontender Right axilla with wound VAC in place minimal erythema surrounding the wound site no bipedal edema, erythema, warmth no neuro deficits Labs noted ASSESSMENT/PLAN> Right axillary abscess, status post I&D status post wound VAC placement Wound culture positive for MSSA On IV cefazolin Improving Discharge p.o. cephalexin other diagnoses and plan of care as per ANJUM Lira notes Jean Whittaker MD (Jean Whittaker MD)
[2018-03-07 15:51] VITALS: BP 119/70; PULSE 78; TEMP 37.3; O2SAT 92
--- NOTE | 2018-03-07 20:03 | Infectious Disease Progress Nt ---
Progress Note Date of Service Mar 07, 2018. Subjective Pt evaluation today including: conversation w/ patient, physical exam, chart review, lab review, review of studies, conversation w/ x ray consultant, review of inpatient medication list Patient seen by wound care, vac placed. Remains afebrile. Pain controlled. Cultures growing methicillin sensitive Staph aureus. No new complaints. All Other Systems: Reviewed and Negative Medications Current Inpatient Medications Medications (Trade) Dose Ordered Sig/Jany Route Start Time Stop Time Status Last Admin Dose Admin Morphine Sulfate (MoRPHine SULFATE INJ) 1 mg Q1H PRN IV 03/04/18 13:15 03/18/18 13:14 Morphine Sulfate (MoRPHine SULFATE INJ) 2 mg Q1H PRN IV 03/04/18 13:15 03/18/18 13:14 03/06/18 14:07 2 MG Morphine Sulfate (MoRPHine SULFATE INJ) 3 mg Q1H PRN IV 03/04/18 13:15 03/18/18 13:14 Glucose (Glucose 40% Gel) 15-30 GRAMS 15 GRAMS... UD PRN PO 03/04/18 15:15 04/03/18 15:14 Glucose (Glucose Chew Tab) 4-8 Tablets 4 Tabl... UD PRN PO 03/04/18 15:15 04/03/18 15:14 Dextrose (Dextrose 50% 50ML Syringe) 25-50ML 25ML FOR ... UD PRN IV 03/04/18 15:15 04/03/18 15:14 Glucagon (Glucagon Inj) 1 mg UD PRN SQ 03/04/18 15:15 04/03/18 15:14 Carbohydrates (Carbohydrates For Hypoglycemia) 15-30 GRAMS 15 grams if BSG 54-69... UD PRN PO 03/04/18 15:15 04/03/18 15:14 Heparin Sodium (Porcine) (Heparin Sq 5000 Unit/0.5ml) 5,000 unit Q12H SQ 03/05/18 08:00 04/04/18 07:59 03/07/18 08:57 5,000 UNIT Acetaminophen/ Hydrocodone Bitart ([place] 5/325 Tab) 1 tab Q4 PRN PO 03/04/18 20:15 03/18/18 20:14 Acetaminophen/ Hydrocodone Bitart ([place] 5/325 Tab) 2 tab Q4 PRN PO 03/04/18 20:15 03/18/18 20:14 7/24/18 15:17 2 TAB Promethazine HCl 25 mg/Sodium Chloride 51 ml @ 204 mls/hr Q6H PRN IV 03/04/18 20:15 04/03/18 20:14 Ondansetron HCl (Zofran Inj) 4 mg Q6H PRN IV 03/04/18 20:15 04/03/18 20:14 Promethazine HCl 12.5 mg/Sodium Chloride 50.5 ml @ 202 mls/hr Q6H PRN IV 03/04/18 20:45 04/03/18 20:44 Insulin Aspart (novoLOG ASPART) SLIDING SCALE If C... ACHS SC 03/05/18 08:00 04/04/18 07:59 03/07/18 18:22 3 UNITS Cefazolin Sodium 2000 mg/Syringe 15 ml @ 3.75 mls/ min Q8H IV 03/06/18 11:00 03/16/18 10:59 03/07/18 11:59 3.75 MLS/MIN Objective Vital Signs Date Time Temp Pulse Resp B/P (MAP) Pulse Ox O2 Delivery O2 Flow Rate FiO2 03/07/18 15:51 37.3 78 17 119/70 (86) 92 Room Air 03/07/18 15:20 Room Air 03/07/18 08:34 94 Room Air 03/07/18 08:03 37.0 78 16 127/77 (94) 94 Room Air 03/07/18 07:50 Room Air 03/07/18 01:39 Room Air 03/06/18 23:15 36.9 76 16 113/68 (83) 95 Room Air Physical Exam General Appearance: WD/WN, no apparent distress Eyes: normal inspection, EOMI, sclerae normal ENT: normal ENT inspection, hearing grossly normal, pharynx normal Neck: supple, no adenopathy, thyroid normal, trachea midline Respiratory/Chest: chest non-tender, lungs clear, normal breath sounds, no respiratory distress Cardiovascular: regular rate, rhythm, no gallop, no murmur Abdomen: normal bowel sounds, non tender, soft, no organomegaly Extremities: non-tender, no calf tenderness, normal capillary refill Neurologic/Psychiatric: alert, normal mood/affect, oriented x 3 Skin: normal color, no rash, + pertinent finding (Wound VAC in place right axilla) Lymphatic: no adenopathy Laboratory Results ------ RUN DATE: 03/06/18 [facility] LAB PAGE 1 RUN TIME: 1241 Specimen Inquiry PATIENT: CHELSEA RICHTER LOC: [facility] U # : [id number] AGE/SX: 47/F ROOM: [facility] REG : 03/04/[address]: Raffy Acosta M.D. : 1970 BED: 2 DIS : STATUS: ADM IN TLOC: SPEC #: [id number] TANO: 03/04/18 STATUS: RES REQ #: [id number] RECD: 03/04/[address]: Raffy Acosta M.D. SOURCE: ABSCESS ENTR: 03/04/18 [facility] DR: Sita Brewer M.D. SPDESC: Loan LU Philip A., M.D. Tichansky, Christine L.,D.Daniel ORDERED: AER/SARAH CULTSMR Procedure Result Verified Site GRAM STAIN Final 03/05/18-709 RESULT MODERATE WBCs SEEN FEW GRAM POSITIVE COCCI OR AER/SARAH CULT Preliminary 03/06/18-1241 Organism 1 STAPHYLOCOCCUS AUREUS QUANITY MODERATE SENS SENSITIVITY TO FOLLOW 1. STAPHYLOCOCCUS AUREUS Target Route Dose RX AB Cost M.I.C. IQ ------ ----- ------ -- ------ -------- - ------ TRIMET/SULFA S <=0.5/ 9.5 * OXACILLIN S <=0.25 VANCOMYCIN S 2 ERYTHROMYCIN S <=0.5 TETRACYCLINE S <=4 CLINDAMYCIN S <=0.5 DAPTOMYCIN S 1 S = SENSITIVE I = INTERMEDIATE R = RESISTANT Last 24 Hours Test 03/06/18 20:55 03/07/18 05:44 03/07/18 08:16 03/07/18 12:01 Bedside Glucose 133 mg/dl 118 mg/dl 147 mg/dl White Blood Count 8.13 K/uL Red Blood Count 3.77 M/uL Hemoglobin 11.0 g/dL Hematocrit 34.5 % Mean Corpuscular Volume 91.5 fL Mean Corpuscular Hemoglobin 29.2 pg Mean Corpuscular Hemoglobin Concent 31.9 g/dl RDW Standard Deviation 47.9 fL RDW Coefficient of Variation 14.5 % Platelet Count 345 K/uL Mean Platelet Volume 9.0 fL Creatinine 0.77 mg/dl Est Creatinine Clear Calc Drug Dose 93.0 ml/min Estimated GFR () 106.6 Estimated GFR (Non- 91.9 Test 03/07/18 17:26 Bedside Glucose 120 mg/dl Assessment and Plan 47-year-old diabetic female with right axillary abscess with methicillin sensitive Staph aureus. Patient on IV cefazolin, did transition to oral cephalexin, likely in the range of 2-3 weeks. Would like to see patient in follow-up at the wound Care Center.
[2018-03-07 23:25] VITALS: BP 117/67; PULSE 75; TEMP 36.9; O2SAT 92
[2018-03-08] MEDS: CEFAZOLIN IV 2,000 MG in SYRINGE 0 ML IV SCH ×3 (03:24→18:34)
[2018-03-08] MEDS ORDERED: CEPH500C2 PO (06:04)
[2018-03-08] MEDS ORDERED: HYDR-5688 PO (06:04)
--- NOTE | 2018-03-08 06:07 | Discharge Instructions ---
Discharge Instructions Date of Service Mar 08, 2018. Admission Reason for Admission: Abscess Of Right Axilla Discharge Discharge Diagnosis / Problem: infection Discharge Goals Goal(s): Decrease discomfort, Improve function, Improve disease control Activity Recommendations Activity Limitations: as noted below Lifting Limitations: no more than 25 pounds Exercise/Sports Limitations: until after follow-up appointment May Resume Sexual Activity: when tolerated Shower/Bathe: tomorrow Driving or Machine Use: resume 1 day after discharge . Instructions / Follow-Up Instructions / Follow-Up SPECIAL CARE INSTRUCTIONS: * Cover incisions and change daily for comfort/drainage. Wound vac per wound clinic * May use ibuprofen for pain as tolerated. * Expect some swelling and bruising. Call your doctor if: * Temperature above 101 degrees * Pain not relieved by pain medicine ordered * There is increased drainage or redness from any incision * You have any unanswered questions or concerns [phone]. FOLLOW UP VISIT: If not already scheduled, please call the office for a follow-up visit. follow up with wound clinic as scheduled call Dr Acosta's office to be seen in 2-3 weeks OFFICE PHONE NUMBER: Dr. Acosta Office [facility] Diet Patient's current hospital diet: Diabetes Type 2 Diet Discharge Diet Recommended Diet: Regular Diet Procedures Procedures Performed: Incision, drainage, and debridement of right axilla abscess Pending Studies Studies pending at discharge: no Laboratory Results Hemoglobin A1c Test 03/05/18 06:59 Range/Units Estimated Average Glucose 163 mg/dl Hemoglobin A1c 7.3 H 4.5-5.6 % Medical Emergencies . Who to Call and When: Medical Emergencies: If at any time you feel your situation is an emergency, please call 911 immediately. . Non-Emergent Contact Non-Emergency issues call your: Primary Care Provider, Surgeon . "Provider Documentation" section prepared by Raffy Acosta. .
--- NOTE | 2018-03-08 06:35 | Surgery Progress Note ---
Surgery Progress Note Date of Service Mar 08, 2018. Subjective afeb, stable wound vac in place very anxious about going home- afraid she will " lash out at " Objective Vital Signs: Date Time Temp Pulse Resp B/P (MAP) Pulse Ox O2 Delivery O2 Flow Rate FiO2 03/07/18 23:45 Room Air 03/07/18 23:25 36.9 75 16 117/67 (84) 92 Room Air 03/07/18 15:51 37.3 78 17 119/70 (86) 92 Room Air 03/07/18 15:20 Room Air 03/07/18 08:34 94 Room Air 03/07/18 08:03 37.0 78 16 127/77 (94) 94 Room Air 03/07/18 07:50 Room Air General Appearance: no apparent distress Respiratory/Chest: no respiratory distress Incision(s): drainage, erythema (less cellulitis) Laboratory Results: Results Past 24 Hours Test 03/07/18 08:16 03/07/18 12:01 03/07/18 17:26 03/07/18 20:36 Range/Units Bedside Glucose 118 147 120 132 70-90 mg/dl Test 03/08/18 04:44 Range/Units Assessment & Plan 03/08/18- wound vac in place- to be d/c on keflex and follow up wound clinic- also my office - Info in EMR, scripts in chart hold d/c- see what medical thinks- very anxious about d/c may need 1-2 days 03/07/18- cont IV atbx today- wound vac change here tomorrow if possible then d/c and f/u wound clinic later in week 03/06/18- overall stable- wound care in progress- considering wound vac may need additional debridement- cellulitis improving cont IV atbx 03/05/18- s/p Incision, drainage, debridement Large Rt axillary abscess will need 2-3 days of wound care and possible additional drainage/debridement cont IV atbx- ask ID to help w/ atbx and will need f/u at wound clinic 03/07/18- cont IV atbx today- wound vac change here tomorrow if possible then d/c and f/u wound clinic later in week 03/06/18- overall stable- wound care in progress- considering wound vac may need additional debridement- cellulitis improving cont IV atbx 03/05/18- s/p Incision, drainage, debridement Large Rt axillary abscess will need 2-3 days of wound care and possible additional drainage/debridement cont IV atbx- ask ID to help w/ atbx and will need f/u at wound clinic
[2018-03-08 07:33] VITALS: BP 109/66; PULSE 77; TEMP 37.1; O2SAT 99
[2018-03-08] MEDS: HEPARIN SOD 5000 UNIT/0.5 ML CARP SQ SCH ×2 (08:11→20:58)
[2018-03-08] MEDS: HYDROCODONE/ACETAMIN 5/325MG TAB PO PRN ×3 (08:41→20:56)
[2018-03-08] MEDS: INSULIN ASPART 100 UNITS/ML 3 ML PEN SC SCH ×4 (09:13→20:57)
[2018-03-08 09:16] LABS: CREATININE 0.76 mg/dl (0.60-1.20)
[2018-03-08 12:02] VITALS: O2SAT 99
--- NOTE | 2018-03-08 15:11 | Infectious Disease Progress Nt ---
Progress Note Date of Service Mar 08, 2018. Subjective Pt evaluation today including: conversation w/ patient, physical exam, chart review, lab review, review of studies, conversation w/ wound care center consultant, review of inpatient medication list Feeling better. Wound VAC in place right axilla. Remains afebrile. Cultures have grown methicillin sensitive staph aureus. All Other Systems: Reviewed and Negative Medications Current Inpatient Medications Medications (Trade) Dose Ordered Sig/Jany Route Start Time Stop Time Status Last Admin Dose Admin Morphine Sulfate (MoRPHine SULFATE INJ) 1 mg Q1H PRN IV 03/04/18 13:15 03/18/18 13:14 Morphine Sulfate (MoRPHine SULFATE INJ) 2 mg Q1H PRN IV 03/04/18 13:15 03/18/18 13:14 03/06/18 14:07 2 MG Morphine Sulfate (MoRPHine SULFATE INJ) 3 mg Q1H PRN IV 03/04/18 13:15 03/18/18 13:14 Glucose (Glucose 40% Gel) 15-30 GRAMS 15 GRAMS... UD PRN PO 03/04/18 15:15 04/03/18 15:14 Glucose (Glucose Chew Tab) 4-8 Tablets 4 Tabl... UD PRN PO 03/04/18 15:15 04/03/18 15:14 Dextrose (Dextrose 50% 50ML Syringe) 25-50ML 25ML FOR ... UD PRN IV 03/04/18 15:15 04/03/18 15:14 Glucagon (Glucagon Inj) 1 mg UD PRN SQ 03/04/18 15:15 04/03/18 15:14 Carbohydrates (Carbohydrates For Hypoglycemia) 15-30 GRAMS 15 grams if BSG 54-69... UD PRN PO 03/04/18 15:15 04/03/18 15:14 Heparin Sodium (Porcine) (Heparin Sq 5000 Unit/0.5ml) 5,000 unit Q12H SQ 03/05/18 08:00 04/04/18 07:59 03/08/18 08:11 5,000 UNIT Acetaminophen/ Hydrocodone Bitart ([place] 5/325 Tab) 1 tab Q4 PRN PO 03/04/18 20:15 03/18/18 20:14 Acetaminophen/ Hydrocodone Bitart ([place] 5/325 Tab) 2 tab Q4 PRN PO 03/04/18 20:15 03/18/18 20:14 03/08/18 13:42 2 TAB Promethazine HCl 25 mg/Sodium Chloride 51 ml @ 204 mls/hr Q6H PRN IV 03/04/18 20:15 04/03/18 20:14 Ondansetron HCl (Zofran Inj) 4 mg Q6H PRN IV 03/04/18 20:15 04/03/18 20:14 Promethazine HCl 12.5 mg/Sodium Chloride 50.5 ml @ 202 mls/hr Q6H PRN IV 03/04/18 20:45 04/03/18 20:44 Insulin Aspart (novoLOG ASPART) SLIDING SCALE If C... ACHS SC 03/05/18 08:00 04/04/18 07:59 03/08/18 13:32 1 UNITS Cefazolin Sodium 2000 mg/Syringe 15 ml @ 3.75 mls/ min Q8H IV 03/06/18 11:00 03/16/18 10:59 03/08/18 11:26 3.75 MLS/MIN Objective Vital Signs Date Time Temp Pulse Resp B/P (MAP) Pulse Ox O2 Delivery O2 Flow Rate FiO2 03/08/18 12:02 99 Room Air 03/08/18 07:45 Room Air 03/08/18 07:33 37.1 77 16 109/66 (80) 99 Room Air 03/07/18 23:45 Room Air 03/07/18 23:25 36.9 75 16 117/67 (84) 92 Room Air 03/07/18 15:51 37.3 78 17 119/70 (86) 92 Room Air 03/07/18 15:20 Room Air Physical Exam General Appearance: WD/WN, no apparent distress Eyes: normal inspection, EOMI, sclerae normal ENT: normal ENT inspection, hearing grossly normal, pharynx normal Neck: supple, no adenopathy, thyroid normal, trachea midline Respiratory/Chest: chest non-tender, lungs clear, normal breath sounds, no respiratory distress Cardiovascular: regular rate, rhythm, no gallop, no murmur Abdomen: normal bowel sounds, non tender, soft, no organomegaly Extremities: non-tender, no calf tenderness Neurologic/Psychiatric: alert, oriented x 3 Skin: normal color, no rash, + pertinent finding (Wound VAC in place right axilla) Lymphatic: no adenopathy Laboratory Results ----- RUN DATE: 03/08/18 [facility] LAB PAGE 1 RUN TIME: 1254 Specimen Inquiry PATIENT: MICHAELKITCHELSEA [facility] U # : [id number] AGE/SX: 47/F ROOM: [facility] REG : 03/04/[address]: Raffy Acosta M.D. : 1970 BED: 2 DIS : STATUS: ADM IN TLOC: SPEC #: [id number] TANO: 03/04/18 STATUS: RES REQ #: [id number] RECD: 03/04/[address]: Raffy Acosta M.D. SOURCE: ABSCESS ENTR: 03/04/[address] [facility] [address]: Sita Brewer M.D. SPDESC: Loan LU Philip A., M.D. Tichansky, Christine L.,D.Daniel ORDERED: AER/SARAH CULTSMR Procedure Result Verified Site GRAM STAIN Final 03/05/18-709 RESULT MODERATE WBCs SEEN FEW GRAM POSITIVE COCCI OR AER/SARAH CULT Preliminary 03/08/18-1254 Organism 1 STAPHYLOCOCCUS AUREUS QUANITY MODERATE SENS SENSITIVITY TO FOLLOW ANAS NO ANAEROBES ISOLATED. 1. STAPHYLOCOCCUS AUREUS Target Route Dose RX AB Cost M.I.C. IQ ------ ----- ------ -- ------ -------- - ------ TRIMET/SULFA S <=0.5/ 9.5 * OXACILLIN S <=0.25 VANCOMYCIN S 2 ERYTHROMYCIN S <=0.5 TETRACYCLINE S <=4 CLINDAMYCIN S <=0.5 DAPTOMYCIN S 1 S = SENSITIVE I = INTERMEDIATE R = RESISTANT Last 24 Hours Test 03/07/18 17:26 03/07/18 20:36 03/08/18 08:02 03/08/18 08:09 Bedside Glucose 120 mg/dl 132 mg/dl 132 mg/dl Creatinine 0.76 mg/dl Est Creatinine Clear Calc Drug Dose 94.2 ml/min Estimated GFR () 108.3 Estimated GFR (Non- 93.4 Test 03/08/18 12:07 Bedside Glucose 107 mg/dl Assessment and Plan 47-year-old diabetic female with right axillary abscess with methicillin sensitive Staph aureus. Patient on IV cefazolin, to transition to oral cephalexin, likely in the range of 2-3 weeks. Would like to see patient in follow-up at the wound Care Center.
[2018-03-08 15:51] VITALS: BP 108/67; PULSE 68; TEMP 37; O2SAT 96
--- NOTE | 2018-03-08 21:37 | Progress Note ---
Medicine Progress Note Date & Time of Visit: Mar 08, 2018 at 21:33. Subjective Seen resting in bed, comfortable, in good spirits States she feels fine overall Minimal pain in the right axillary bedside region Denies other symptoms Objective Last 8 Hrs Date Time Temp Pulse Resp B/P (MAP) Pulse Ox O2 Delivery O2 Flow Rate FiO2 03/08/18 15:51 37.0 68 18 108/67 (81) 96 Room Air 03/08/18 15:40 Room Air Physical Exam: VS noted and reviewed oriented 2, not in distress, speaks in sentences with no effort nor accessory muscle use normal rate, regular rhythm, no murmurs clear breath sounds bilaterally non distended, soft, nontender Right axilla with wound VAC in place with minimal erythema surrounding the wound site no bipedal edema, erythema, warmth no neuro deficits Labs noted Laboratory Results: Last 24 Hours Test 03/08/18 08:02 03/08/18 08:09 03/08/18 12:07 03/08/18 16:54 Bedside Glucose 132 mg/dl 107 mg/dl 98 mg/dl Creatinine 0.76 mg/dl Est Creatinine Clear Calc Drug Dose 94.2 ml/min Estimated GFR () 108.3 Estimated GFR (Non- 93.4 Test 03/08/18 20:51 Bedside Glucose 133 mg/dl Assessment & Plan R AXILLARY ABSCESS S/P I&D MSSA on culture Improving with cefazolin IV, plan to transition to oral cephalexin 2-3 weeks after discharge Follow-up with wound care center DM II HA1c: 7.3 -holding oral agents -Novolog sliding scale per protocol DVT Prophylaxis -Heparin SQ Disposition per surgical team - planned d/c home Follows with Dr Ward for routine care Thank you for this consultation. We will follow the patient with you during their hospital stay. You can reach a member of the [facility] Hospitalist Team 07/03 via pager @ . Current Inpatient Medications: Current Inpatient Medications Medications (Trade) Dose Ordered Sig/Jany Route Start Time Stop Time Status Last Admin Dose Admin Morphine Sulfate (MoRPHine SULFATE INJ) 1 mg Q1H PRN IV 03/04/18 13:15 03/18/18 13:14 Morphine Sulfate (MoRPHine SULFATE INJ) 2 mg Q1H PRN IV 03/04/18 13:15 03/18/18 13:14 03/06/18 14:07 2 MG Morphine Sulfate (MoRPHine SULFATE INJ) 3 mg Q1H PRN IV 03/04/18 13:15 03/18/18 13:14 Glucose (Glucose 40% Gel) 15-30 GRAMS 15 GRAMS... UD PRN PO 03/04/18 15:15 04/03/18 15:14 Glucose (Glucose Chew Tab) 4-8 Tablets 4 Tabl... UD PRN PO 03/04/18 15:15 04/03/18 15:14 Dextrose (Dextrose 50% 50ML Syringe) 25-50ML 25ML FOR ... UD PRN IV 03/04/18 15:15 04/03/18 15:14 Glucagon (Glucagon Inj) 1 mg UD PRN SQ 03/04/18 15:15 04/03/18 15:14 Carbohydrates (Carbohydrates For Hypoglycemia) 15-30 GRAMS 15 grams if BSG 54-69... UD PRN PO 03/04/18 15:15 04/03/18 15:14 Heparin Sodium (Porcine) (Heparin Sq 5000 Unit/0.5ml) 5,000 unit Q12H SQ 03/05/18 08:00 04/04/18 07:59 03/08/18 20:58 5,000 UNIT Acetaminophen/ Hydrocodone Bitart ([place] 5/325 Tab) 1 tab Q4 PRN PO 03/04/18 20:15 03/18/18 20:14 Acetaminophen/ Hydrocodone Bitart ([place] 5/325 Tab) 2 tab Q4 PRN PO 03/04/18 20:15 03/18/18 20:14 03/08/18 20:56 2 TAB Promethazine HCl 25 mg/Sodium Chloride 51 ml @ 204 mls/hr Q6H PRN IV 03/04/18 20:15 04/03/18 20:14 Ondansetron HCl (Zofran Inj) 4 mg Q6H PRN IV 03/04/18 20:15 04/03/18 20:14 Promethazine HCl 12.5 mg/Sodium Chloride 50.5 ml @ 202 mls/hr Q6H PRN IV 03/04/18 20:45 04/03/18 20:44 Insulin Aspart (novoLOG ASPART) SLIDING SCALE If C... ACHS SC 03/05/18 08:00 04/04/18 07:59 03/08/18 18:34 3 UNITS Cefazolin Sodium 2000 mg/Syringe 15 ml @ 3.75 mls/ min Q8H IV 03/06/18 11:00 03/16/18 10:59 03/08/18 18:34 3.75 MLS/MIN
[2018-03-08 23:05] VITALS: BP 119/65; PULSE 76; TEMP 37; O2SAT 98
[2018-03-09] MEDS: CEFAZOLIN IV 2,000 MG in SYRINGE 0 ML IV SCH ×2 (03:06→11:24)
[2018-03-09 07:44] VITALS: BP 120/77; PULSE 81; TEMP 36.8; O2SAT 94
[2018-03-09 07:59] VITALS: O2SAT 94
--- NOTE | 2018-03-09 08:19 | DISCHARGE SUMMARY ---
PRINCIPAL DIAGNOSIS: Right axillary abscess. PROCEDURES: Patient underwent incision, drainage, and debridement of right axillary abscess and then wound VAC placement. HISTORY OF PRESENT ILLNESS: Patient is a 47-year-old female who was in the Emergency Room twice for a right axillary abscess with worsening. HOSPITAL COURSE: Patient was taken to the operating room from the emergency room where she underwent incision, drainage, and debridement of a right axillary abscess, which was very large. It grew out Staphylococcus aureus but was not MRSA. Initially, she had wound care and then a wound VAC placement with evaluation by the wound clinic physician. She has progressed well and is felt stable for discharge home today on 03/09/2018 to be followed in the wound clinic and surgical clinic.
[2018-03-09] MEDS: HEPARIN SOD 5000 UNIT/0.5 ML CARP SQ SCH (08:51)
[2018-03-09] MEDS: INSULIN ASPART 100 UNITS/ML 3 ML PEN SC SCH ×2 (08:52→13:08)
--- NOTE | 2018-03-09 10:36 | Infectious Disease Progress Nt ---
Progress Note Date of Service Mar 09, 2018. Subjective Pt evaluation today including: conversation w/ patient, physical exam, chart review, lab review, review of studies, conversation w/ remediation consultant, review of inpatient medication list Offers no new complaints today. VAC change yesterday by wound care nurse. Remains afebrile. Pain controlled. All Other Systems: Reviewed and Negative Medications Current Inpatient Medications Medications (Trade) Dose Ordered Sig/Jany Route Start Time Stop Time Status Last Admin Dose Admin Morphine Sulfate (MoRPHine SULFATE INJ) 1 mg Q1H PRN IV 03/04/18 13:15 03/18/18 13:14 Morphine Sulfate (MoRPHine SULFATE INJ) 2 mg Q1H PRN IV 03/04/18 13:15 03/18/18 13:14 03/06/18 14:07 2 MG Morphine Sulfate (MoRPHine SULFATE INJ) 3 mg Q1H PRN IV 03/04/18 13:15 03/18/18 13:14 Glucose (Glucose 40% Gel) 15-30 GRAMS 15 GRAMS... UD PRN PO 03/04/18 15:15 04/03/18 15:14 Glucose (Glucose Chew Tab) 4-8 Tablets 4 Tabl... UD PRN PO 03/04/18 15:15 04/03/18 15:14 Dextrose (Dextrose 50% 50ML Syringe) 25-50ML 25ML FOR ... UD PRN IV 03/04/18 15:15 04/03/18 15:14 Glucagon (Glucagon Inj) 1 mg UD PRN SQ 03/04/18 15:15 04/03/18 15:14 Carbohydrates (Carbohydrates For Hypoglycemia) 15-30 GRAMS 15 grams if BSG 54-69... UD PRN PO 03/04/18 15:15 04/03/18 15:14 Heparin Sodium (Porcine) (Heparin Sq 5000 Unit/0.5ml) 5,000 unit Q12H SQ 03/05/18 08:00 04/04/18 07:59 03/09/18 08:51 5,000 UNIT Acetaminophen/ Hydrocodone Bitart ([place] 5/325 Tab) 1 tab Q4 PRN PO 03/04/18 20:15 03/18/18 20:14 Acetaminophen/ Hydrocodone Bitart ([place] 5/325 Tab) 2 tab Q4 PRN PO 03/04/18 20:15 03/18/18 20:14 03/08/18 20:56 2 TAB Promethazine HCl 25 mg/Sodium Chloride 51 ml @ 204 mls/hr Q6H PRN IV 03/04/18 20:15 04/03/18 20:14 Ondansetron HCl (Zofran Inj) 4 mg Q6H PRN IV 03/04/18 20:15 04/03/18 20:14 Promethazine HCl 12.5 mg/Sodium Chloride 50.5 ml @ 202 mls/hr Q6H PRN IV 03/04/18 20:45 04/03/18 20:44 Insulin Aspart (novoLOG ASPART) SLIDING SCALE If C... ACHS SC 03/05/18 08:00 04/04/18 07:59 03/09/18 08:52 4 UNITS Cefazolin Sodium 2000 mg/Syringe 15 ml @ 3.75 mls/ min Q8H IV 03/06/18 11:00 03/16/18 10:59 03/09/18 03:06 3.75 MLS/MIN Objective Vital Signs Date Time Temp Pulse Resp B/P (MAP) Pulse Ox O2 Delivery O2 Flow Rate FiO2 03/09/18 07:59 94 Room Air 03/09/18 07:44 36.8 81 17 120/77 (91) 94 Room Air 03/09/18 07:15 Room Air 03/08/18 23:30 Room Air 03/08/18 23:05 37.0 76 18 119/65 (83) 98 Room Air 03/08/18 15:51 37.0 68 18 108/67 (81) 96 Room Air 03/08/18 15:40 Room Air 03/08/18 12:02 99 Room Air Physical Exam General Appearance: WD/WN, no apparent distress Eyes: normal inspection, EOMI, sclerae normal ENT: normal ENT inspection, pharynx normal Neck: supple, no adenopathy, trachea midline Respiratory/Chest: chest non-tender, lungs clear, normal breath sounds, no respiratory distress Cardiovascular: regular rate, rhythm, no gallop, no murmur Abdomen: normal bowel sounds, non tender, soft, no organomegaly Extremities: non-tender, no calf tenderness Neurologic/Psychiatric: alert, oriented x 3 Skin: normal color, no rash, + pertinent finding (VAC in place right axilla) Lymphatic: no adenopathy Laboratory Results Last 24 Hours Test 03/08/18 12:07 03/08/18 16:54 03/08/18 20:51 03/09/18 08:04 Bedside Glucose 107 mg/dl 98 mg/dl 133 mg/dl 128 mg/dl Assessment and Plan 47-year-old diabetic female with right axillary abscess with methicillin sensitive Staph aureus. Patient improved with IV cefazolin, to transition to oral cephalexin, likely in the range of 2-3 weeks. Would like to see patient in follow-up at the wound Care Center.
[2018-03-09 12:47] VITALS: BP 120/77; PULSE 81; TEMP 36.8; O2SAT 94
--- NOTE | 2018-03-14 08:38 | EDITING REQUIRED CODING QUERY ---
DEBRIDEMENT DOCUMENTATION To promote full compliance with coding requirements relating to patient care, physician participation is requested in all cases of senior sas developer uncertainty. Please assist us with the question(s) below: Please place an X in the parenthesis (x). If other, please document the finding: Type of Debridement: (x ) Excisional Debridement- Cutting away necrotic, devitalized tissue or slough to the level of viable tissue using a sharp instrument (i.e. scalpel, scissors, etc.) ( ) Non Excisional Debridement- The removal of necrotic, devitalized tissue or slough by means of scraping, mechanical brushing, flushing, or washing (i.e. irrigation,whirlpool);minor removal of loose fragments. ( ) Other (please specify): Instrument Used: ( ) Scissors (x ) Scalpel (x ) Curette x(x ) Other (please specify): cautery Depth of Debridement: ( ) Skin (x ) Skin and Subcutaneous Tissue ( ) Skin, Subcutaneous Tissue and Muscle ( ) Skin, Subcutaneous Tissue, Muscle and Bone ( ) Other (please specify): Please Specify the Size of Debridement in cm2: Thank you Indu Rodriguez
== END 2018-03-09 14:25 | disposition home health service (06) | DRG 300 ==
LOC: C.EDB 11:53 → C.MSN 13:13 → ENRESERV 13:23
PROVIDERS: ADMIT Surgery; ATTEND Surgery
PROC: 0J9D3ZZ Drainage of Right Upper Arm Subcutaneous Tissue and Fascia, Percutaneous Approach (ICD-10-PCS; 2018-03-04)
PROC: 0JBD0ZX Excision of Right Upper Arm Subcutaneous Tissue and Fascia, Open Approach, Diagnostic (ICD-10-PCS; principal; 2018-03-04 18:00)
DX: E11.52 Type 2 diabetes mellitus with diabetic peripheral angiopathy with gangrene (principal); L02.411 Cutaneous abscess of right axilla; I96 Gangrene, not elsewhere classified; B95.61 Methicillin susceptible Staphylococcus aureus infection as the cause of diseases classified elsewhere; E11.40 Type 2 diabetes mellitus with diabetic neuropathy, unspecified; E11.21 Type 2 diabetes mellitus with diabetic nephropathy; F32.9 Major depressive disorder, single episode, unspecified; Z51.81 Encounter for therapeutic drug level monitoring; Z79.899 Other long term (current) drug therapy; Z79.84 Long term (current) use of oral hypoglycemic drugs; Z88.1 Allergy status to other antibiotic agents; Z91.040 Latex allergy status; Z91.048 Other nonmedicinal substance allergy status